=== PATIENT | female | born 1960 | race Caucasian/White ===

== ENCOUNTER 2021-06-07 13:54 | Outpatient (CLI) | payer OTHER, SELFPAY ==
--- NOTE | ~2021-06-07 | XR_ITS ---
EXAMINATION: XR abdomen/kub 1V INDICATION: Left flank pain TECHNIQUE: Supine views of the abdomen were obtained on 2 radiographs. COMPARISON: None FINDINGS: No urolithiasis is identified. The bowel gas pattern is normal. The visualized osseous stru ctures are unremarkable. IMPRESSION: 1. No radiographic correlate for the patient's symptoms. Reviewed, dictated and finalized at location A.
--- NOTE | ~2021-06-07 | CT_ITS ---
EXAMINATION: CT abdomen pelvis wo con DATE: 06/07/2021 14:20 INDICATION: Left flank pain TECHNIQUE: Computed tomography (CT) of the abdomen and pelvis was performed without intravenous contr ast. The dose-length product (DLP) was 416.76 mGy-cm. Automated exposure control and iterative recons truction technique were employed. COMPARISON: None FINDINGS: There is a 5 mm nodule of the left lower lobe. The heart size is normal. Cysts of the liver measure up to 3.5 cm in the left hepatic lobe. The spleen, pancreas, gall bladder, and adrenal gland s are normal. There is a 2 mm nonobstructing stone of the right kidney. The left kidney is unremarkab le. No stones are present in the ureters or bladder. There is no hydronephrosis or hydroureter. There is calcified atherosclerosis of the aorta. No pathologically enlarged abdominal or pelvic lymph node s are identified. There is no free intraperitoneal gas or evidence of bowel obstruction. An intramusc ular lipoma is noted in the right lateral abdominal wall. The appendix is normal. There is mild lumba r spondylosis. A small fat-containing umbilical hernia is noted. IMPRESSION: 1. No CT correlate for the patient's symptoms. Reviewed, dictated and finalized at location A.
== END 2021-06-07 13:55 | disposition home or self-care (01) ==
LOC: ANHIMG 14:00
PROVIDERS: PCP Internal Medicine; Visit Provider Nurse Practitioner Adult Health
DX: R10.9 Unspecified abdominal pain (principal)
CPT/HCPCS: 74018; 74176

== ENCOUNTER → 2023-04-09 13:28 | Outpatient (CLI) | payer OTHER, SELFPAY ==
--- NOTE | ~2023-04-09 | CT_ITS ---
EXAMINATION: CT abdomen pelvis wo/w con DATE: 04/09/2023 14:20 INDICATION: Gross hematuria TECHNIQUE: Computed tomography (CT) of the abdomen and pelvis was performed without and subsequently with 130 CC Omnipaque 350 intravenous contrast. Automated exposure control and iterative reconstructi on technique were employed. Exam dose: 1228.86 mGy-cm total exam DLP. COMPARISON: 06/07/2021 CT abdomen pelvis FINDINGS: 5 mm left lower lobe pulmonary nodule and smaller middle lobe nodule are unchanged since , consistent with benign process. The lung bases are clear of infiltrate or consolidation. Normal heart size. No pericardial or pleural effusion. Stable approximately 3.5 cm left hepatic cyst and 2.5 cm lower right hepatic cyst. The liver, gallbla dder, bile ducts, pancreas, pancreatic duct, spleen, and adrenal glands are otherwise unremarkable an d unchanged. No urinary tract calculus or hydroureteronephrosis. The uterus and adnexal areas are unremarkable. There is atherosclerotic calcification but normal caliber of the abdominal aorta. No intraperitoneal or retroperitoneal or pelvic mass lesion or adenopathy or ascites is noted. Normal appendix. No bowel obstruction, bowel wall thickening, pneumatosis or intraperitoneal free air . Approximately 7.5 mm and 9.5 mm left renal cysts. No other renal space-occupying mass lesion is detec natalie. No intraluminal filling defect of the renal collecting structures, renal pelves or ureters or ur inary bladder is noted. No bladder wall thickening. Very small fat-containing umbilical hernia. Right lateral wall intramuscular lipoma is again noted. Included skeletal structures are unremarkable. IMPRESSION: No cause for gross hematuria is identified Left renal cysts Hepatic cysts Reviewed, dictated and finalized at Location A. Reviewed, dictated and finalized at location B.
[2023-04-09 13:59] LABS: Estimated Glomerular Filt Rate > 60
== END ==
PROVIDERS: PCP Internal Medicine; Visit Provider Urology
DX: R31.0 Gross hematuria (principal); N28.1 Cyst of kidney, acquired; K76.89 Other specified diseases of liver
CPT/HCPCS: 74178; Q9967

== ENCOUNTER 2024-05-09 16:43 | Outpatient (CLI) | payer OTHER, SELFPAY ==
--- NOTE | ~2024-05-09 | CT_ITS ---
EXAMINATION: CT sinus wo con DATE: 05/09/2024 17:09 INDICATION: Chronic sinusitis TECHNIQUE: Computed tomography (CT) of the paranasal sinuses was performed without contrast. Iterativ e reconstruction technique was employed. Exam dose: 286.08 mGy-cm total exam DLP. COMPARISON: None FINDINGS: There is leftward bowing of the nasal septum. There is symmetric moderately prominent soft tissue swelling of the nasal turbinates. The ostiomeatal units are patent. The right frontal sinus is not developed. The left frontal sinus and the anterior ethmoid air cells, maxillary sinuses and right sphenoid sinus are normally developed and aerated. There is very prominent nearly complete opacification of the left sphenoid sinus, some central calcif ication. Some chronic thickening of the wall of the left sphenoid sinus but no expansion of the sinus . There is limited development and partial opacification of the right ethmoid air cells. The left ethmo id air cells are normally aerated. Middle and inner ear apparatus appear unremarkable. IMPRESSION: Leftward bowing of nasal septum Moderate soft tissue swelling of the nasal turbinates Patent ostiomeatal units Near complete opacification of left sphenoid sinus with some central calcification and thickening of the wall, indicating chronicity Limited development and partial opacification of right mastoid air cells Reviewed, dictated and finalized at Location A. Reviewed, dictated and finalized at location J. IMPRESSION: Leftward bowing of nasal septum Moderate soft tissue swelling of the nasal turbinates Patent ostiomeatal units Near complete opacification of left sphenoid sinus with some central calcificat ion and thickening of the wall, indicating chronicity Limited development and partial opacification of right mastoid air cells
== END 2024-05-09 16:44 | disposition home or self-care (01) ==
PROVIDERS: PCP Internal Medicine; Visit Provider Otolaryngology
DX: J32.9 Chronic sinusitis, unspecified (principal)
CPT/HCPCS: 70486

== ENCOUNTER 2024-08-06 11:30 | Outpatient (CLI) | payer OTHER, SELFPAY ==
--- NOTE | 2024-08-06 11:42 | ECG_ITS ---
Test Date: 2024-08-06 11:48:36 Measurements Intervals Ayer Rate: 89 P: 54 RI: 123 QRS: -1 QRSD: 81 T: 32 QT: 333 QTc: 407 Interpretive Statements SINUS RHYTHM CONSIDER INFERIOR INFARCT, AGE INDETERMINATE BASELINE ARTIFACT- I, II, III, AVR, AVL, AVF, V3-V6 ABNORMAL ECG No previous ECG available for comparison Electronically Signed On 08-06-2024 11:58:30 RAW SAMPLER by Nathanael Franco D.O.
== END 2024-08-06 11:31 | disposition home or self-care (01) ==
LOC: ANHSURGERY 11:35
PROVIDERS: PCP Internal Medicine; Visit Provider Otolaryngology
DX: Z01.818 Encounter for other preprocedural examination (principal); I10 Essential (primary) hypertension; R94.31 Abnormal electrocardiogram [ECG] [EKG]
CPT/HCPCS: 93005

== ENCOUNTER 2024-08-11 00:01 | Day surgery (SDC) | payer OTHER, SELFPAY ==
[2024-08-04 15:02] VITALS: BMI 25.1
--- NOTE | 2024-08-04 15:13 | SUR.PREOP ---
Report to the Outpatient Waiting Room, entrance under the green pavilion located off [facility], at time 0600 on date 08/11/24. Planned Procedure Time: 0800.? Time changes happen often and if your time is changed the preop area will call you the afternoon before. - You and your visitor will be asked to self-screen and do not enter if you have any COVID symptoms. Please call surgeon if you need to reschedule. - A mask is optional within the hospital at this time. Patients may have clear liquids (water, carbonated beverages, clear teas, apple juice) until 3 hours prior to surgery with a maximum of 20 ounces. - No food from midnight until time of surgery and no smoking Take only the following medications with a SIP of water on the morning of surgery: Lorazepam as needed, nasal spray, inhaler DO NOT STOP ANY OF YOUR OTHER PRESCRIPTION MEDICATIONS PRIOR TO SURGERY EXCEPT THE FOLLOWING Medications to discontinue per physician: vitamins and supplements- 3 days Date to take last dose: 08/08/24 Please no make-up, nail uzbek, hairspray, perfume, deodorant, or body powder the day of surgery.? No jewelry (including any body piercings) or valuables the day of surgery, leave them at home.? Please take a shower or bath the night before, or the morning of, surgery with an antibacterial soap.? Wear comfortable, loose fitting clothing.? Children are encouraged to wear pajamas. - Jewelry must be removed prior to entering the operating room.? Rings and piercings that are not removed may be cut off. - The hospital will not accept responsibility for valuables.? - Please leave all valuables, including medications, at home the day of surgery. If you are going home after surgery, a licensed food service driver must drive you home.? - NO public transportation without another adult if you receive anesthesia. - We recommend that an adult stay with you for 24 hours following discharge. - We also recommend that you do not drive, make important decision, drink alcoholic beverages, or take any drugs that were not prescribed by your health care provider for at least 24 hours after your discharge time. Follow any additional instructions given to you from your surgeon. Telephone instructions given to patient and asked if any additional questions and then verbalized understanding. Patient advised to call surgeon office or pre surgery nurse liaison [phone] if any additional questions.
[2024-08-11] VITALS (9 sets, daily range): BP systolic 141–174; BP diastolic 63–75; PULSE 89–105; RESP 15–20; TEMP 36.1–36.2; O2SAT 100
--- NOTE | 2024-08-11 06:58 | WPDHPUPDATE1 ---
History and Physical Update Update Date/Time: 08/11/24 06:58 History and Physical has been reviewed, including an updated exam of the patient. There are NO changes in the patient's condition. Risks, benefits, and alternatives have been discussed and questions answered. Patient agrees to proceed with procedure.
[2024-08-11] MEDS: LACTATED RINGERS 1,000 ML 30 ML IV CONT (07:20)
[2024-08-11] MEDS: OXYMETAZOLINE HCL 0.05% NAS 15 ML BTL (*BKC) 1 SPRAY NASAL (07:23)
[2024-08-11] MEDS: ACETAMINOPHEN 500 MG TABLET 1000 MG PO (07:23)
--- NOTE | 2024-08-11 07:47 | WPDANESEPPF ---
Anes - Initial Pre Proc Eval Procedure: Operation Date: 08/11/24 08:00 Proposed Procedures p Fusion Guided Septoplasty, Bilateral Turbinate Reduction, Left Sphenoidotomy - Mil Cardoso MD Date/Time: 08/11/24 07:47 Surgeon: Mil Cardoso MD Pre Op Diagnosis: deviated septum,turbinate hypertrophy Patient Data Age: 64 Gender: F Height: 1.7 m Weight: 70 kg Last Vital Signs Temp 97.0 F L 08/11/24 07:14 Pulse 105 H 08/11/24 07:14 Resp 20 08/11/24 07:14 BP 170/63 H 08/11/24 07:14 Pulse Ox 100 08/11/24 07:14 O2 Del Method Room Air 08/11/24 07:14 Allergies Allergy/AdvReac Type Severity Reaction Status Date / Time amoxicillin Allergy Intermediate Rash Verified 08/04/24 14:55 levofloxacin Allergy Intermediate Rash Verified 08/04/24 14:55 Penicillins AdvReac Intermediate Nausea and Verified 08/04/24 14:55 Vomiting Home Medications Medication Instructions Recorded Confirmed Type albuterol sulfate 90 mcg/actuation 2 inh inhalation Q6H PRN shortness 05/23/23 08/04/24 History breath activated powder inhaler of breath atorvastatin 20 mg tablet 20 mg PO DAILY 05/23/23 08/04/24 History cholecalciferol (vitamin D3) 50 50 mcg PO DAILY 05/23/23 08/04/24 History mcg (2,000 unit) capsule estradiol-norethindrone acet 1 1 tablet PO DAILY 05/23/23 08/04/24 History mg-0.5 mg tablet lorazepam 0.5 mg tablet 0.5 mg PO BID PRN Anxiety 05/23/23 08/04/24 History lisinopril 20 mg tablet 40 mg PO DAILY 03/21/24 08/04/24 History ipratropium bromide 21 mcg (0.03 2 spray intranasal .qd-tid #30 mL 04/23/24 08/04/24 Rx %) nasal spray Adult Probiotic See Rx Instructions .Route .COMPLEX 08/04/24 08/04/24 History Patient hx anesthesia problems: none Family hx anesthesia problems: none Results Review: All pre-operative results and documents have been reviewed as part of the pre-operative evaluation. [facility] Past Medical History Medical History Cancer Family History Family History Mother Hypertension Sibling Hypertension Anxiety Sibling Hypertension Anxiety Other Anxiety Social History Social History Smoking status: Never smoker Alcohol intake: never Substance use: never Lack of Transportation: No Lack of Food: Never True Current Housing: I Have Housing Concerned About Future Housing: No Difficulty Paying Gas/Electric Bills: No Difficulty Paying for Meds: No Currently Unemployed: No Education: High School Diploma/GED Difficulty w/ Childcare or Family Care: No Living arrangements: with family Spiritual care concerns: No Anes - Eval Final PreProcedure Day of Procedure 08/11/24 07:47 Patient weight: normal Heart: regular rate and rhythm Lungs: clear to auscultation Airway: Mallampati scale class II Neurological: alert and oriented ASA classification: II Emergent: no Anesthetic plan: proceed Anesthesia type and monitoring: general ETT and standard monitoring Results Review: All pre-operative results and documents have been reviewed as part of the pre-operative evaluation. HTN, hyperlipidemia. EKG w NSR. Informed Consent: The patient's anesthetic plan and its attendant risks and benefits were discussed with the patient/family/POA. Questions were solicited and answers provided to the satisfaction of the patient/family/POA.
--- NOTE | 2024-08-11 07:51 | W.PM.PROC2 ---
Procedure Note - Detailed Date of Procedure 08/11/24 Pre-op Diagnosis deviated septum,turbinate hypertrophy Surgeon Mil Cardoso MD
[2024-08-11] MEDS: ceFAZolin 2 GM/D5W 50 ML 2 GM/50 ML BAG IVPB (08:13)
[2024-08-11] MEDS: LIDO 1%/EPINEPHRINE 1:100,000 20 ML VIAL 10 ML INFILTRATE (08:31)
[2024-08-11] MEDS: MUPIROCIN 2% OINT 22 GM TUBE 1 APPLIC EACH NARE (08:40)
--- NOTE | 2024-08-11 08:52 | P.OP_ITS ---
Procedure Note - Detailed Date of Procedure 08/11/24 Pre-op Diagnosis deviated septum,turbinate hypertrophy, chronic sphenoid sinusitis Post-op Diagnosis Same Procedure Performed Left sphenoidotomy, image guided. Endoscopic septoplasty and turbinoplasty Surgeon Mil Cardoso MD Anesthesia General Findings Left chronic sphenoid sinusitis, likely fungal but mostly resolved by time of surgery Description of Procedure On the date of procedure the patient was met in the preoperative area and risk and benefits of the procedure reviewed with the patient as documented in the H&P and they elected to proceed with surgery. Patient was brought back to the operating room by the anesthesia team and underwent general endotracheal anesthesia. Once an adequate plane of anesthesia was obtained a timeout was performed to assure the patient identification the patient here to be performed were correct. They were.The patient was then prepped and draped in the normal fashion for endoscopic sinus surgery. The diffusion image guidance system was calibrated and used for the entire case. Afrin-soaked pledgets were placed in the nasal cavities bilaterally. The entire case was performed under endoscopic visualization. Nasal endoscopy was performed at the beginning of the case. Attention was directed to the left side. 1% lidocaine with 1:100,000 epinephrine was then injected into the root of the middle turbinate and lateral nasal wall. The left side was narrowed due to septal deviation.? Thus, septoplasty was required.? A left modified kenna incision was made in the left mid septum and a mucoperichondrial flap was elevated in the usual fashion. The flap was elevated under endoscopic visualization and the remainder of the case was performed with endoscopic assistance. Using a D-knife, an incision was made through the cartilaginous septum with care to preserve the appropriate caudal and dorsal ?L- strut? of cartilage. The cartilage was then disarticulated from the bony- cartilaginous junction and the deviated cartilage was removed. Further deviated bone and cartilage was removed from the maxillary crest and posterior bony septum with care to avoid injury to the mucoperichondrial flap. This led to significant improvement in the nasal airway. The flaps were laid back down. Attention was then directed to the left sphenoid. The middle turbinate was lateralized, the superior turbinate was lateralized and the natural ostia was visualized. This was widened using joseph, then sphenoid punch. Further widened with 2mm kerasin. The sinus was then visualized and some mucoid material was suctioned out. Irrigation was not required. Once the sinus was completely clear, nasopore was placed in the meatus and between the septum and superior turbinate. Lastly, the bilateral inferior turbinates were reduced submucosally using 2mm microdebrider and then outfractured with a sayer elevator. This significantly opened the airway. At this point, the procedure was concluded. Care the patient was transferred back to the anesthesia team and the patient was awoke in the operating room and transferred back to the PACU in stable condition. Mil Cardoso M.D. Estimated Blood Loss 10 Drains No Packing Yes (nasopore) Pathology None sent Complications No immediate complications Condition Stable Disposition PACU
[2024-08-11] MEDS: fentaNYL CITRATE INJ (*CRX) 100 MCG/2 ML VIAL 25 MCG IV PUSH ×2 (10:04→10:35)
[2024-08-11] MEDS: oxyCODONE HCL (*CRX) 5 MG TAB IR PO (10:43)
[2024-08-11] MEDS: ONDANSETRON INJ 4 MG/2 ML VIAL IV PUSH (10:43)
== END 2024-08-11 11:28 | disposition home or self-care (01) ==
PROVIDERS: PCP Internal Medicine; Visit Provider Otolaryngology
PROC: (CPT 31287; principal; 2024-08-11 08:00)
DX: J34.2 Deviated nasal septum (principal); J34.3 Hypertrophy of nasal turbinates; J32.3 Chronic sphenoidal sinusitis; Z79.51 Long term (current) use of inhaled steroids
CPT/HCPCS: 31287; 61782; 30520; 30140; A9270; J0690; J1100; J2003; J2004; J2250; J2270; J2405; J2704; J3010; J7050; J7120

== ENCOUNTER 2024-10-31 00:03 | Day surgery (SDC) | payer OTHER, SELFPAY ==
[2024-10-16 13:55] VITALS: BMI 24.7
--- OUTSIDE RECORDS SUMMARY | 2024-10-31 00:08 | XMS_ITS | Data Portability ---
Author Organization [facility], Main Office Address [address] [place] [address] Assessment Encounter Date Assessment Date Assessment LastModified by Organization Details LastModified Time 03/19/2024 03/19/2024 Assessment: Mild OSAHS, AHI = 14 PLMD Hypoventilation Plan: The following were reviewed and explained to the patient: primary care/referral note [facility] home sleep study 03/12/24 AHI = 14, supine AHI = 15 General information on sleep disordered breathing, evaluation of sleep disordered breathing, treatment with PAP therapy, and living with PAP therapy were covered. PSG is medically necessary to determine the management of sleep apnea. We discussed with the patient the impact of weight on: Sleep disordered breathing Hypertension Hyperlipidemia Osteopenia Thoracic DDD We discussed with the patient the benefit of PAP therapy on: Sleep disordered breathing Anxiety Rhinitis PSVT Hypertension Educated the patient on sleep hygiene measures. Relaxing rituals to rest easy, understanding foods with positive and negative impact on sleep, creating a peaceful sleep environment, timing of exercise, using herbal sleep aids, and practicing sleep-friendly meditation were covered. To determine how much sleep is needed, the patient will assess where she falls on the spectrum, examine what lifestyle factors such as work schedules and stress are affecting the quality and quantity of sleep. In general, adults need 7-9 hours of sleep. Educated the patient regarding foods that promote sleep. These include but are not limited to cherries, bananas, toast, oatmeal, and warm milk. Educated the patient regarding foods and drinks to avoid before bedtime. These include but are not limited to aged cheese, chocolate, spicy foods, tomato-based sauces, soy, ginseng tea and processed meat. Advocated influenza vaccination annually and pneumonia vaccination in 2026. Advocated weight loss through diet and exercise. Patient's ideal body weight according to height and gender is up to 140 lbs. Encouraged patient to adjust caloric intake to maintain/achieve ideal body weight, emphasizing on fruits, vegetables, whole grains, and fat-free or low-fat products. These include lean meats, poultry, fish, beans, eggs, and nuts and foods that are low in saturated fats, trans-fats, cholesterol, salt (sodium), and glycemic index. Stressed the importance of regular exercise up to the patient's capacity limits. In this case, we recommend 20 min daily walking, 2 days a week of resistance training. Patient to monitor BP daily and bring records to PCP for further management. Follow-up: 1 week after titration sleep study Not available 03/19/2024 10:59:12 06/09/2024 06/09/2024 Assessment: Mild OSAHS, AHI = 14, uncontrolled with autoCPAP Plan: The following were reviewed and explained to the patient: [facility] home sleep study 03/12/24 AHI = 14, supine AHI = 15 PAP compliance downloaded and interpreted x 20 minutes. Data reviewed and explained to the patient. Average apnea/hypopnea index (AHI) is 10.4 Patient used PAP > 4 hours 100% of the time. PAP is set at 6-16 cmH2O. PAP will be reset at 8-18 cmH2O until titration sleep study is done. Keep ramp start at 4 cmH2O. Keep ramp duration for 10 minutes. Change humidifier from automatic mode to 4. Keep tube temperature on automatic mode. Oxygen supplementation: none Patient is benefiting from PAP therapy. Encouraged patient to maintain PAP use more than 70% of the time. Statement of PAP use and benefits will be sent to the home care store. Educated the patient on problems and solutions associated with positive airway pressure (PAP) use. Difficulty tolerating pressure, mask leaks, intolerance of interface, nasal congestion, claustrophobic response, dry mouth, and unintentional mask removal during sleep were covered. Dry mouth is a normal occurrence for people who just start out on PAP therapy because they are not used to air blowing in to the throat to hold open. Dry mouth is exacerbated for people who wear nasal PAP mask and whose jaw drops open during sleep. Not only does this create a much less efficient therapy because of leakage, it also causes dry mouth. There are a couple solutions to help prevent this type of problem. A simple solution would be to wear a chinstrap which essentially holds the jaw in place. A second solution would be a switch to a full face mask which covers both the nose and mouth. Although this is another easy solution, using a full face mask for some could seem claustrophobic or confining. There is no silver bullet solution as no single mask is right for everybody. Sometimes it takes a bit of experimentation to find a PAP mask which best meets the patient's needs as well as fits comfortably. Another tactic is to use a humidifier on your PAP machine. Most new PAP machines have integrated humidifiers. Humidification is harris when dealing with symptoms of dry mouth because the humidifier can supply both warm and room temperate air. Even a small amount of humidity in the airflow will help nasal passages to stay hydrated. If a person is using both a full face mask and a PAP machine with a heated humidifier and is still experiencing dry mouth, an ill-fitted PAP mask might be causing the problem. Leakage can be caused by a mask that is to large or small, the wrong style mask, the cushion is degraded or simply because the mask's straps aren't adjusted correctly. If leakage occurs, dry air from the room can leak in while humidification escapes. The result is reduced humidification within the circuit and resulting in dry throat and mouth. Finally, beyond factors involving the PAP machine and mask, dry mouth can also be caused or worsened by dehydration. The general recommendation to during eight 8 oz. glasses of water a day might be too little for many people. When people drink large amounts of coffee or other caffeine beverages, or sweat a lot during the day, making sure to rehydrate is an important part of PAP therapy. Provided the patient with a list of local home care stores where positive airway pressure (PAP) units, accoutrement, and services are available. Home care store selection is based on patient's insurance carrier. Patient will setup an appointment with [facility] for supplies and pressure adjustments. A major predictor of success with use of PAP is follow-up with both the respiratory supplier and the treating physician. The download results can show the treating physician information about adherence to treatment, residual AHI while on treatment and presence of large mask leakage. This information is especially helpful if the patient has residual sleepiness despite treatment. General information on sleep disordered breathing, evaluation of sleep disordered breathing, treatment with PAP therapy, and living with PAP therapy were covered. We discussed with the patient the impact of weight on: Sleep disordered breathing Hypertension Hyperlipidemia Osteopenia Thoracic DDD We discussed with the patient the benefit of PAP therapy on: Sleep disordered breathing Anxiety Rhinitis PSVT Hypertension Educated the patient on sleep hygiene measures. Relaxing rituals to rest easy, understanding foods with positive and negative impact on sleep, creating a peaceful sleep environment, timing of exercise, using herbal sleep aids, and practicing sleep-friendly meditation were covered. To determine how much sleep is needed, the patient will assess where she falls on the spectrum, examine what lifestyle factors such as work schedules and stress are affecting the quality and quantity of sleep. In general, adults need 7-9 hours of sleep. Educated the patient regarding foods that promote sleep. These include but are not limited to cherries, bananas, toast, oatmeal, and warm milk. Educated the patient regarding foods and drinks to avoid before bedtime. These include but are not limited to aged cheese, chocolate, spicy foods, tomato-based sauces, soy, ginseng tea and processed meat. Advocated influenza vaccination annually and pneumonia vaccination in 2026. Advocated weight loss through diet and exercise. Patient's ideal body weight according to height and gender is up to 140 lbs. Encouraged patient to adjust caloric intake to maintain/achieve ideal body weight, emphasizing on fruits, vegetables, whole grains, and fat-free or low-fat products. These include lean meats, poultry, fish, beans, eggs, and nuts and foods that are low in saturated fats, trans-fats, cholesterol, salt (sodium), and glycemic index. Stressed the importance of regular exercise up to the patient's capacity limits. In this case, we recommend 20 min daily walking, 2 days a week of resistance training. Patient to monitor BP daily and bring records to PCP for further management. Follow-up: 1 week after titration sleep study Not available 06/09/2024 11:45:21 07/21/2024 07/21/2024 Assessment: Hypertension Mild OSAHS, AHI = 14, better controlled with adjusted autoCPAP Plan: The following were reviewed and explained to the patient: [facility] home sleep study 03/12/24 AHI = 14, supine AHI = 15 PAP compliance downloaded and interpreted x 20 minutes. Data reviewed and explained to the patient. Average apnea/hypopnea index (AHI) is 6.1. Patient used PAP > 4 hours 95% of the time. PAP is set at 8-18 cmH2O. PAP will be reset at 11-18 cmH2O. Keep ramp start at 4 cmH2O. Keep ramp duration for 10 minutes. Keep EPR +1 television inspector. Keep humidifier on automatic mode. Keep tube temperature at 84 F. Oxygen supplementation: none Patient is benefiting from PAP therapy. Encouraged patient to maintain PAP use more than 70% of the time. Statement of PAP use and benefits will be sent to the home care store. Educated the patient on problems and solutions associated with positive airway pressure (PAP) use. Difficulty tolerating pressure, mask leaks, intolerance of interface, nasal congestion, claustrophobic response, dry mouth, and unintentional mask removal during sleep were covered. Dry mouth is a normal occurrence for people who just start out on PAP therapy because they are not used to air blowing in to the throat to hold open. Dry mouth is exacerbated for people who wear nasal PAP mask and whose jaw drops open during sleep. Not only does this create a much less efficient therapy because of leakage, it also causes dry mouth. There are a couple solutions to help prevent this type of problem. A simple solution would be to wear a chinstrap which essentially holds the jaw in place. A second solution would be a switch to a full face mask which covers both the nose and mouth. Although this is another easy solution, using a full face mask for some could seem claustrophobic or confining. There is no silver bullet solution as no single mask is right for everybody. Sometimes it takes a bit of experimentation to find a PAP mask which best meets the patient's needs as well as fits comfortably. Another tactic is to use a humidifier on your PAP machine. Most new PAP machines have integrated humidifiers. Humidification is harris when dealing with symptoms of dry mouth because the humidifier can supply both warm and room temperate air. Even a small amount of humidity in the airflow will help nasal passages to stay hydrated. If a person is using both a full face mask and a PAP machine with a heated humidifier and is still experiencing dry mouth, an ill-fitted PAP mask might be causing the problem. Leakage can be caused by a mask that is to large or small, the wrong style mask, the cushion is degraded or simply because the mask's straps aren't adjusted correctly. If leakage occurs, dry air from the room can leak in while humidification escapes. The result is reduced humidification within the circuit and resulting in dry throat and mouth. Finally, beyond factors involving the PAP machine and mask, dry mouth can also be caused or worsened by dehydration. The general recommendation to during eight 8 oz. glasses of water a day might be too little for many people. When people drink large amounts of coffee or other caffeine beverages, or sweat a lot during the day, making sure to rehydrate is an important part of PAP therapy. Provided the patient with a list of local home care stores where positive airway pressure (PAP) units, accoutrement, and services are available. Home care store selection is based on patient's insurance carrier. Patient will setup an appointment with [facility] for supplies and pressure adjustments. A major predictor of success with use of PAP is follow-up with both the respiratory supplier and the treating physician. The download results can show the treating physician information about adherence to treatment, residual AHI while on treatment and presence of large mask leakage. This information is especially helpful if the patient has residual sleepiness despite treatment. General information on sleep disordered breathing, evaluation of sleep disordered breathing, treatment with PAP therapy, and living with PAP therapy were covered. We discussed with the patient the impact of weight on: Sleep disordered breathing Hypertension Hyperlipidemia Osteopenia Thoracic DDD We discussed with the patient the benefit of PAP therapy on: Sleep disordered breathing Anxiety Rhinitis PSVT Hypertension Educated the patient on sleep hygiene measures. Relaxing rituals to rest easy, understanding foods with positive and negative impact on sleep, creating a peaceful sleep environment, timing of exercise, using herbal sleep aids, and practicing sleep-friendly meditation were covered. To determine how much sleep is needed, the patient will assess where she falls on the spectrum, examine what lifestyle factors such as work schedules and stress are affecting the quality and quantity of sleep. In general, adults need 7-9 hours of sleep. Educated the patient regarding foods that promote sleep. These include but are not limited to cherries, bananas, toast, oatmeal, and warm milk. Educated the patient regarding foods and drinks to avoid before bedtime. These include but are not limited to aged cheese, chocolate, spicy foods, tomato-based sauces, soy, ginseng tea and processed meat. Advocated influenza vaccination annually and pneumonia vaccination in 2027. Advocated weight loss through diet and exercise. Patient's ideal body weight according to height and gender is up to 140 lbs. Encouraged patient to adjust caloric intake to maintain/achieve ideal body weight, emphasizing on fruits, vegetables, whole grains, and fat-free or low-fat products. These include lean meats, poultry, fish, beans, eggs, and nuts and foods that are low in saturated fats, trans-fats, cholesterol, salt (sodium), and glycemic index. Stressed the importance of regular exercise up to the patient's capacity limits. In this case, we recommend 20 min daily walking, 2 days a week of resistance training. Patient to monitor BP daily and bring records to PCP for further management. Follow-up: 3 months, September 2024 [email or web address] Not available 07/21/2024 14:53:31 10/20/2024 10/20/2024 Assessment: Mild OSAHS, AHI = 14, better controlled with adjusted autoCPAP Plan: The following were reviewed and explained to the patient: [facility] home sleep study 03/12/24 AHI = 14, supine AHI = 15 PAP compliance downloaded and interpreted x 20 minutes. Data reviewed and explained to the patient. Average apnea/hypopnea index (AHI) is 5.3. Patient used PAP > 4 hours 81% of the time. PAP is set at 11-18 cmH2O. PAP will be reset at 12-18 cmH2O. Keep ramp start at 4 cmH2O. Keep ramp duration for 10 minutes. Change EPR from +1 to +3 television inspector. Keep humidifier on automatic mode. Keep tube temperature at 78 F. Oxygen supplementation: none Patient is benefiting from PAP therapy. Encouraged patient to maintain PAP use more than 70% of the time. Statement of PAP use and benefits will be sent to the home care store. Educated the patient on problems and solutions associated with positive airway pressure (PAP) use. Difficulty tolerating pressure, mask leaks, intolerance of interface, nasal congestion, claustrophobic response, dry mouth, and unintentional mask removal during sleep were covered. Dry mouth is a normal occurrence for people who just start out on PAP therapy because they are not used to air blowing in to the throat to hold open. Dry mouth is exacerbated for people who wear nasal PAP mask and whose jaw drops open during sleep. Not only does this create a much less efficient therapy because of leakage, it also causes dry mouth. There are a couple solutions to help prevent this type of problem. A simple solution would be to wear a chinstrap which essentially holds the jaw in place. A second solution would be a switch to a full face mask which covers both the nose and mouth. Although this is another easy solution, using a full face mask for some could seem claustrophobic or confining. There is no silver bullet solution as no single mask is right for everybody. Sometimes it takes a bit of experimentation to find a PAP mask which best meets the patient's needs as well as fits comfortably. Another tactic is to use a humidifier on your PAP machine. Most new PAP machines have integrated humidifiers. Humidification is harris when dealing with symptoms of dry mouth because the humidifier can supply both warm and room temperate air. Even a small amount of humidity in the airflow will help nasal passages to stay hydrated. If a person is using both a full face mask and a PAP machine with a heated humidifier and is still experiencing dry mouth, an ill-fitted PAP mask might be causing the problem. Leakage can be caused by a mask that is to large or small, the wrong style mask, the cushion is degraded or simply because the mask's straps aren't adjusted correctly. If leakage occurs, dry air from the room can leak in while humidification escapes. The result is reduced humidification within the circuit and resulting in dry throat and mouth. Finally, beyond factors involving the PAP machine and mask, dry mouth can also be caused or worsened by dehydration. The general recommendation to during eight 8 oz. glasses of water a day might be too little for many people. When people drink large amounts of coffee or other caffeine beverages, or sweat a lot during the day, making sure to rehydrate is an important part of PAP therapy. Provided the patient with a list of local home care stores where positive airway pressure (PAP) units, accoutrement, and services are available. Home care store selection is based on patient's insurance carrier. Patient will setup an appointment with [facility] for supplies and pressure adjustments. A major predictor of success with use of PAP is follow-up with both the respiratory supplier and the treating physician. The download results can show the treating physician information about adherence to treatment, residual AHI while on treatment and presence of large mask leakage. This information is especially helpful if the patient has residual sleepiness despite treatment. General information on sleep disordered breathing, evaluation of sleep disordered breathing, treatment with PAP therapy, and living with PAP therapy were covered. We discussed with the patient the impact of weight on: Sleep disordered breathing Hypertension Hyperlipidemia Osteopenia Thoracic DDD We discussed with the patient the benefit of PAP therapy on: Sleep disordered breathing Anxiety Rhinitis PSVT Hypertension Educated the patient on sleep hygiene measures. Relaxing rituals to rest easy, understanding foods with positive and negative impact on sleep, creating a peaceful sleep environment, timing of exercise, using herbal sleep aids, and practicing sleep-friendly meditation were covered. To determine how much sleep is needed, the patient will assess where she falls on the spectrum, examine what lifestyle factors such as work schedules and stress are affecting the quality and quantity of sleep. In general, adults need 7-9 hours of sleep. Educated the patient regarding foods that promote sleep. These include but are not limited to cherries, bananas, toast, oatmeal, and warm milk. Educated the patient regarding foods and drinks to avoid before bedtime. These include but are not limited to aged cheese, chocolate, spicy foods, tomato-based sauces, soy, ginseng tea and processed meat. Advocated influenza vaccination annually and pneumonia vaccination in 2026. Advocated weight loss through diet and exercise. Patient's ideal body weight according to height and gender is up to 140 lbs. Encouraged patient to adjust caloric intake to maintain/achieve ideal body weight, emphasizing on fruits, vegetables, whole grains, and fat-free or low-fat products. These include lean meats, poultry, fish, beans, eggs, and nuts and foods that are low in saturated fats, trans-fats, cholesterol, salt (sodium), and glycemic index. Stressed the importance of regular exercise up to the patient's capacity limits. In this case, we recommend 20 min daily walking, 2 days a week of resistance training. Patient to monitor BP daily and bring records to PCP for further management. Follow-up: 3 months, December 2024 [facility] Not available 10/20/2024 14:51:14 Plan of Treatment Reminders Order Date Submit Date Provider Last Modified By Organization Details Last Modified Time Details Appointments Any 30 2024 02:00P Cindy Gillespie MD Not available Not available Not available Lab None recorded. Referral None recorded. Procedures None recorded. Surgeries None recorded. Imaging polysomno gram, titration study - Approved, Case #[id number], Valid through 03/26/2024- [address], [address] [place], [address], 10/14/2024 17:18:32 polysomno gram, titration study - Please call patient to schedule. autoCPA P unsuccess ful in controlli ng AHI to <5 2023 024 [email or web address] [facility], [address] [place], [address], 10/22/2024 17:31:58 Medication Orders None recorded. Patient TargetsNo targets recorded. Patient Instructions Encounter Date Encounter Id Patient Instructions Last Modified By Organization Details Last Modified Time 05/07/2024 [id number] Follow-up hypertension, hyperlipidemia, GERD as well as anxiety disorder all these clinically stable. Still bothered by persistent nasal congestion rhinorrhea is being evaluated by ENT is got a CT scan of the sinuses scheduled for tomorrow. Most recent blood work looked adequate. No need for repeating this. Was also seen by the metal numerical tool programmer in the interim and no evidence any significant allergies. Does need a mammogram bone density scan: Endoscopy. Will continue on current Rx otherwise. Follow-up in six months. Additional Orders - Directives - Recommendations 1. Mammogram 2. DEXA Scan 3. Colonoscopy Portions of the record may have been created with voice recognition software. Occasional wrong-word or s ound-a-like substitutions may have occurred due to the inherent limitations of voice recognition software. Read the chart carefully and recognize, using context, where substitutions have occurred. Not available 05/07/2024 16:53:47 Reason for Referral None Reported. Results Created Date Observation Date Name Description Value Unit Range Abnormal Flag Note LastModifiedBy Organization Detail LastModifiedTime 03/17/2003/12/2024 home sleep study No observ ation record ed. [facility] [address] [place], [address], 03/17/2024 11:11:36 06/25/20 24 03/12/2024 home sleep study No observ ation record ed. [email or web address] [facility] [address], [place], [address], 03/18/2024 16:11:46 05/10/20 24 05/09/2024 CT, sinus es, w/o contr ast No observ ation record ed. [email or web address] [facility] [address] [facility] [address], [place], [address], 05/11/2024 00:27:57 10/08/19 25 MAMMO , scree piero, bilat eral No observ ation record ed. [email or web address] [id number] Not Available 2024 14:21:43 Result Notes None recorded. Problems Name Problem SNOMED Code Status Onset Date Resolution Date Notes Provider Name and Address Organization Details Recorded Time Benign essential hypertensi on 5097744 Active Not Available [facility] 3 06:48:06 Mammograph y finding 038754392 Completed Not Available [facility] 3 06:48:07 Amenorrhea 25467654 Completed Not Available [facility] 3 06:48:07 Senile osteoporos is 92330711 Active 2021 Not Available [facility] 3 06:48:07 Anxiety disorder 650671196 Active 2018 Not Available [facility] 3 06:48:07 Contact dermatitis caused by urushiol from Eastern poison mert 330751064 Active 2021 Not Available [facility] 3 06:48:07 Pure hyperchole sterolemia 094835010 Active Not Available [facility] 3 06:48:08 Thoracic back pain 471446607 Active 2021 Not Available [facility] 3 06:48:08 Vitamin D deficiency 53072038 Active 2021 Not Available [facility] 3 06:48:08 Depressive disorder 85893532 Active Not Available [facility] 3 06:48:08 Cervicovag inal cytology: Low grade squamous intraepith elial lesion 162953713 Completed Not Available [facility] 3 06:48:09 Atypical squamous cells of undetermin ed significan ce on cervical Papanicola ou smear 069398128 Completed Not Available [facility] 3 06:48:09 Carpal tunnel syndrome 52047130 Active Not Available [facility] 3 06:48:10 Paroxysmal supraventr icular tachycardi a 34472909 Active Not Available [facility] 3 06:48:10 Irregular periods 42954309 Completed Not Available [facility] 3 06:48:10 COVID-19 939292199 Active 2022 Not Available [facility] 3 06:48:10 Allergic rhinitis 78673842 Active 2022 Parker Brody MD [address], [address], [address] , [employer] 3 12:39:30 Obstructiv e sleep apnea syndrome 44121182 Active 2023 Parker Brody MD [address], [address], [place], [address] , [employer] 4 16:44:38 Gastroesop hageal reflux disease 621289975 Active 2023 Parker Brody MD [address], [address], [place], [address] , [employer] 4 16:48:42 Notes:Medical History: Anxie ty Bilateral tinnitus COVID infections 06/2020, 09/2022 Rhinitis Mild OSAHS, AHI = 14, 03/12/24 PSVT Hypertension Hyperlipidemia Up to 5 mm pulmonary nodules ASHIA Hepatic cysts Left renal cysts Vit D deficiency Left femoral neck osteopenia Thoracic DDD CTS 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 Procedures Surgical History None recorded. Imaging Results Imaging Date Name Status LastModified by Organ [facility] Details LastModified Time 03/12/2024 home sleep study completed [facility] [address] [place], [address], 03/17/2024 11:11:36 03/12/2024 home sleep study completed [email or web address] [place] [address], [place], [address], 03/18/2024 16:11:46 05/09/2024 CT, sinuses, w/o contrast completed [email or web address] [place] [address] [address] [facility] [address], [place], [address], 05/11/2024 00:27:57 10/08/2024 MAMMO, screening, bilateral completed [email or web address] Information not available 10/08/2024 14:21:43 Procedure Notes None recorded. Medical Equipment None Reported. Allergies Allergen ID Allergen Name Allergen Category Reaction Reaction Severity Criticality Documentation Date Start Date Code Code System Note Provider Name and Address Organization Details Recorded Time 59270 Vibramyci n medicatio n other Not available Not available 11/22/202291026 5 RxNorm GI distu rbanc e Not Available [facility] 3 06:59:51 92731 Substance with sulfonami de structure and antibacte rial mechanism of action (substanc e) medicatio n hives Not available Not available 11/22/2022 53481 8003 SNOMED Not Available [facility] 3 06:59:51 81181 Product containin g penicilli n and antibioti c (product) medicatio n hives moderate Not available 11/22/2022 53653 05 SNOMED Not Available [facility] 3 06:59:51 68734 Levaquin medicatio n rash moderate Not available 11/22/2022 93692 2 RxNorm Not Available [facility] 3 06:59:51 07955 Biaxin medicatio n other Not available Not available 11/22/2022 94222 9 RxNorm abdom inal pain Not Available [facility] 3 06:59:51 Medications Name Sig Start Date Stop Date Status Note LastModified by Organization Details LastModified Time atorvastati n 20 mg tablet TAKE 1 TABLET DAILY active Not Available Not Available No t Available naproxen 375 mg tablet ONE TWICE A DAY active Not Available Not Available No t Available esterified estrogens-m ethyltestos terone 0.625 mg-1.25 mg tablet Take 1 tablet by oral route. 09/04 completed Not Available Not Available Not Available clindamycin HCl 300 mg capsule TAKE 1 CAPSULE BY MOUTH EVERY 6 HOURS 03/19 completed Not Available Not Available Not Available triamcinolo ne acetonide 0.5 % topical cream APPLY A THIN LAYER TO THE AFFECTED AREA(S) BY TOPICAL ROUTE 2 TIMES PER DAY 04/29 completed Not Available Not Available Not Available azithromyci n 250 mg tablet TAKE DIRECTED active Not Available Not Available No t Available fluconazole 150 mg tablet Take 1 tablet as needed by oral route as needed. 03/05 completed Not Available Not Available Not Available benzonatate 200 mg capsule TAKE 1 CAPSULE BY MOUTH THREE TIMES DAILY 09/30 completed Not Available Not Available Not Available hydrocodone 5 mg-acetamin ophen 325 mg tablet TAKE 1 TABLET BY MOUTH EVERY 4 HOURS active Not Available Not Available No t Available metronidazo le 0.75 % (37.5 mg/5 gram) vaginal gel INSERT 1 APPLICATO RFUL VAGINALLY AT BEDTIME FOR 5 NIGHTS 04/29 completed Not Available Not Available Not Available lisinopril 20 mg tablet one and half tablet daily 11/22 completed Not Available Not Available Not Available ondansetron HCl 4 mg tablet TAKE 2 TABLETS BY MOUTH TWICE DAILY NEEDED 09/30 completed Not Available Not Available Not Available medroxyprog esterone 5 mg tablet Take 1 tablet every day by oral route. 09/04 completed Not Available Not Available Not Available fluorouraci l 5 % topical cream APPLY TOPICALLY TO THE CHEST TWICE DAILY FOR 6 WEEKS 04/29 completed Not Available Not Available Not Available prednisone 5 mg tablet 03/19 completed Not Available Not Available Not Available terconazole 0.8 % vaginal cream INSERT 1 APPLICATO RFUL VAGINALLY EVERY NIGHT FOR 3 DAYS 09/30 completed Not Available Not Available Not Available clindamycin HCl 150 mg capsule Take 1 capsule every 6 hours by oral route. active Not Available Not Available No t Available promethazin e 6.25 mg-codeine 10 mg/5 mL syrup Take 5 mL every 6 hours by oral route. 03/05 completed Not Available Not Available Not Available estradiol-n orethindron e acet 1 mg-0.5 mg tablet TAKE 1 TABLET BY MOUTH DAILY active Not Available Not Available No t Available tramadol 50 mg tablet TAKE 1 TABLET BY MOUTH FOUR TIMES DAILY NEEDED active Not Available Not Available No t Available triamcinolo ne acetonide 0.1 % topical cream APPLY TOPICALLY TO THE AFFECTED AREA TWICE DAILY 09/30 completed Not Available Not Available Not Available ondansetron 8 mg disintegrat ing tablet Place 1 tablet twice a day by transling ual route as needed. 09/30 completed Not Available Not Available Not Available prednisone 10 mg tablets in a dose pack 08/30 completed Not Available Not Available Not Available terconazole 80 mg vaginal suppository UNWRAP AND INSERT 1 SUPPOSITO RY VAGINALLY AT BEDTIME FOR 3 NIGHTS 11/18 completed Not Available Not Available Not Available cefadroxil 500 mg capsule 04/29 completed Not Available Not Available Not Available Mobic 15 mg tablet once daily 09/02 completed Not Available Not Available Not Available ofloxacin 0.3 % ear drops 10/26 completed Not Available Not Available Not Available lorazepam 0.5 mg tablet TAKE 1 TABLET BY MOUTH TWICE DAILY NEEDED active Not Available Not Available No t Available Kenalog 10 mg/mL suspension for injection Take 1 mL by injection route. 10/26 completed [facility]: 0003- [phone]- 20 Not Available Not Available Not Available benzonatate 100 mg capsule TAKE 1 CAPSULE BY MOUTH EVERY DAY AT BEDTIME NEEDED FOR COUGH 10/26 completed Not Available Not Available Not Available misoprostol 200 mcg tablet INSERT 1 TABLET VAGINALLY 48 HOURS PRIOR TO PROCEDURE .THEN INSERT 1 TABLET THE NIGHT BEFORE PROCEDURE 03/19 completed Not Available Not Available Not Available Diprolene AF 0.05 % topical cream Apply 1 applicati on twice a day by topical route. active Not Available Not Available No t Available Valtrex 1 gram tablet take 1/2 tablet daily x 30 day; then prn 12/24 completed Not Available Not Available Not Available lisinopril 30 mg tablet TAKE 1 TABLET BY MOUTH EVERY DAY 12/06 completed Not Available Not Available Not Available omeprazole 20 mg capsule,del ayed release TAKE 1 CAPSULE BY MOUTH DAILY AROUND SUPPER TIME active Not Available Not Available No t Available lorazepam 1 mg tablet TAKE 1 TABLET BY MOUTH THREE TIMES DAILY 11/18 completed Not Available Not Available Not Available azelastine 137 mcg (0.1 %) nasal spray ADMINISTE R 1 SPRAY IN EACH NOSTRIL EVERY 12 HOURS active Not Available Not Available No t Available methylpredn isolone 4 mg tablets in a dose pack TAKE BY MOUTH DIRECTED 09/30 completed Not Available Not Available Not Available hydrocodone 10 mg-chlorphe niramine 8 mg/5 mL oral susp extend.rel 12hr active Not Available Not Available Not Available albuterol sulfate HFA 90 mcg/actuati on aerosol inhaler USE 2 INHALATIO NS FOUR TIMES A DAY active Not Available Not Available No t Available hydroxyzine HCl 10 mg tablet Take by oral route four times daily PRN for itching active Not Available Not Available No t Available lisinopril 40 mg tablet TAKE 1 TABLET BY MOUTH EVERY DAY active Not Available Not Available No t Available ipratropium bromide 21 mcg (0.03 %) nasal spray INSTILL TWO SPRAYS IN EACH NOSTRIL EVERY DAY TO THREE TIMES DAILY active Not Available Not Available No t Available Bactrim DS 800 mg-160 mg tablet Take 1 tablet every 12 hours by oral route for 5 days. 03/04 completed Not Available Not Available Not Available Estrace 0.01% (0.1 mg/gram) vaginal cream Insert 1 g by vaginal route. 09/04 completed 09/24 Not Available Not Available Not Available Lexapro 10 mg tablet Take 1 tablet every day by oral route. 12/24 completed Not Available Not Available Not Available Prempro 0.45 mg-1.5 mg tablet Take 1 tablet every day by oral route. 05/01 completed Not Available Not Available Not Available Prempro 0.3 mg-1.5 mg tablet Take 1 tablet every day by oral route. 05/01 completed Not Available Not Available Not Available nitrofurant oin monohydrate /macrocryst als 100 mg capsule TK 1 C PO BID 11/18 completed Not Available Not Available Not Available aspirin (bulk) 2015 active 81mg Not Available Not Available Not Avai lable Lo Loestrin Fe 1 mg-10 mcg (24)/10 mcg (2) tablet active Not Available Not Available Not Available Lo Loestrin Fe 2012 active Not Available Not Available Not Avai lable ropivacaine (PF) 5 mg/mL (0.5 %) injection solution Take 1 mL by injection route. 10/26 completed [facility] [phone] Not Available Not Available Not Available QNASL 80 mcg/actuati on nasal aerosol spray active Not Available Not Available Not Available Black Cohosh Menopause Complex 20-250-50 (d)20-200-1 00 mg(n) tablets Take 1 tablet every day by oral route. active Not Available Not Available No t Available Flowflex COVID-19 Antigen Home Test kit 10/26 completed Not Available Not Available Not Available Paxlovid 300 mg (150 mg x 2)-100 mg tablets in a dose pack Take two of he 150 mg tablets and one of the 100 mg tablets twice daily for five days 10/27 completed Not Available Not Available Not Available Vitals Date Recorded Body height Body mass index (BMI) Body weight Heart rate Oxygen saturation Oxygen saturation in Arterial blood by Pulse oximetry Body temperature Systolic blood pressure Diastolic blood pressure Provider Name and Address Organization Details Last Updated DateTime 4 167.64 cm 25.3 kg/m2 60937 g 80 /min 98 % 98 % 97.8 [degF] 128 mm[Hg] 72 mm[Hg] Amy Garcia CMA [employer] [facility] [employer] 4 10:09:08 Date Recorded Heart rate Respiratory rate Provider N goyo and Address Organization Details Last Updated DateTime 03/19/2024 80 /min 15 /min Esvin Gillespie MD [address] [facility], [facility] [address], [place], [address], [employer] [facility] [employer] 03/19/2024 11:06:33 Date Recorded Body height Body mass index (BMI) Body weight Heart rate Body temperature Oxygen saturation Oxygen saturation in Arterial blood by Pulse oximetry Systolic blood pressure Diastolic blood pressure Provider Name and Address Organization Details Last Updated DateTime 4 167.64 cm 25.7 kg/m2 70782.1 9 g 82 /min 97.9 [degF] 99 % 99 % 144 mm[Hg] 88 mm[Hg] KENN Riggs MS [employer] [facility] [employer] 4 16:40:10 Date Recorded Body height Body mass index (BMI) Body weight Body temperature Heart rate Oxygen saturation Oxygen saturation in Arterial blood by Pulse oximetry Systolic blood pressure Diastolic blood pressure Provider Name and Address Organization Details Last Updated DateTime 4 167.64 cm 25.5 kg/m2 94425.5 9 g 98 [degF] 72 /min 98 % 98 % 126 mm[Hg] 70 mm[Hg] Amy Garcia [facility] [employer] [facility] 4 10:47:26 Date Recorded Heart rate Respiratory rate Provider N goyo and Address Organization Details Last Updated DateTime 06/09/2024 72 /min 14 /min Esvin Gillespie MD [address] [facility], [address], [facility] [employer] [facility] 06/09/2024 11:41:05 Date Recorded Body height Oxygen saturation Oxygen saturation in Arterial blood by Pulse oximetry Body temperature Body mass index (BMI) Body weight Provider Name and Address Organization Details Last Updated DateTime 4 167.64 cm 96 % 96 % 98.5 [degF] 24.2 kg/m2 90596.8 6 g Amy Garcia [facility] [employer] [facility] 4 14:18:37 Date Recorded Heart rate Respiratory rate Heart rate Systolic blood pressure Diastolic blood pressure Provider Name and Address Organization Details Last Updated DateTime 07/21/2024 83 /min 15 /min 83 /min 140 mm[Hg] 72 mm[Hg] Esvin Gillespie MD [address], [place], [address], [facility] [employer] [facility] 4 14:37:46 Date Recorded Body height Heart rate Oxygen saturation Oxygen saturation in Arterial blood by Pulse oximetry Body mass index (BMI) Body weight Body temperature Systolic blood pressure Diastolic blood pressure Provider Name and Address Organization Details Last Updated DateTime 5 167.64 cm 88 /min 98 % 98 % 26.5 kg/m2 74636.1 5 g 97.8 [degF] 128 mm[Hg] 72 mm[Hg] Maude Miller MA [facility] [employer] [facility] 5 14:21:01 Date Recorded Heart rate Respiratory rate Provider N goyo and Address Organization Details Last Updated DateTime 10/20/2024 88 /min 14 /min Esvin Gillespie MD [address], [facility] [address], [place], [address], [facility] [employer] 10/20/2024 14:45:21 Social History Question Answer Notes LastModified by Organizat ion Details LastModified Time Tobacco Smoking Status Never Smoker Shaylee Montes, RMA null, [facility] [employer] 01/24/2023 14:36:26 Do You Have An Advance Directive? No [id number] Information not available 11/22/2022 What Is Your Level Of Alcohol Consumption? None [email or web address] Information not available 01/24/2023 Do You Wear A Helmet When Biking? Yes Information not available 01/24/2023 What Is Your Level Of Caffeine Consumption? None [email or web address] Information not available 03/19/2024 In The 14 Days Before Symptom Onset, Have You Had Close Contact With A Laboratory-confirm ed COVID-19 While That Case Was Ill? No Information n ot available 01/24/2023 In The 14 Days Before Symptom Onset, Have You Had Close Contact With A Person Who Is Under Investigation For COVID-19 While That Person Was Ill? No Information not available 01/24/2023 What Type Of Diet Are You Following? REGULAR [id number] Information not available 11/22/2022 Do You Have An Electrostatic Air Filter? No Information not available 10/20/2024 What Is Your Occupation? Retired [employer] Information not available 01/24/2023 Do You Have A Humidifier? No Information not available 10/20/2024 Do You Have A Medical Power Of Charge Aide? No Information not available 01/24/2023 Do You Have Moisture Problems In Your Home? No Information not available 10/20/2024 What Was The Date Of Your Most Recent Tobacco Screening? 10/20/2024 Information not available 10/20/2024 Do You Have Any Pets? No Information not available 10/20/2024 What Is Your Relationship Status? [id number] Information not available 11/22/2022 Do You Use Your Seat Belt Or Car Seat Routinely? Yes Information not available 01/24/2023 Do You Have Smoke And Carbon Monoxide Detectors In Your Home? Yes Information not available 10/20/2024 Are You Passively Exposed To Smoke? No Information no t available 10/20/2024 Do You Feel Stressed (tense, Restless, Nervous, Or Anxious, Or Unable To Sleep At Night)? [id number] Information not available 01/24/2023 Do You Use Any Illicit Or Recreational Drugs? No Information not available 03/19/2024 Do You Use Sunscreen Routinely? Yes Information not available 10/20/2024 Have You Recently Traveled Abroad? No Information not available 01/24/2023 Do You Have Any Dietary Restrictions? No Information not available 01/24/2023 Sex: Female Functional Status Question Answer Note LastModified by [employer] ion Details LastModified Time What is your exercise level? Occasional [id number] Information not available 11/22/2022 Mental Status None recorded. Family History Relationship Description Onset Age of this Age Resolved Age Notes LastModified by Organization Details LastModified Time Sister Hypertensive disorder [email or web address] Not available 2023 11:07:01 Sister Hyperlipidem ia [email or web address] Not available 2023 11:07:10 Mother Hypertensive disorder [email or web address] Not available 2023 11:07:25 Mother Age related macular degeneration [email or web address] Not available 11:07:31 Mother Osteoporosis Not availab le 03/19/2024 11:07:41 Medical History Condition Response NERVE DISEASE N BLINDNESS N RHEUMATIC FEVER N KIDNEY STONES N BLADDER PROBLEMS N MRSA N OTHER # 1 N POLIO N LUNG DISEASE/DISORDER N HISTORY OF DRUG ABUSE N COPD N RADIATION / CHEMOTHERAPY N Other # 2 N BLOOD DISEASES N EAR OR HEARING PROBLEMS N MUMPS N SHINGLES N DEPRESSION (INCLUDING POST ) N BOWEL PROBLEMS N STROKE/TIA N ULCERS N BENIGN PROSTATIC HYPERPLASIA N MEASLES N HYPOTENSION N MYOCARDIAL INFARCTION N OBESITY N GERD/NAUSEA N ANEURYSM N URINARY/BLADDER/KIDNEY PROBLEMS N CORONARY ARTERY DISEASE (CAD) N ADDICTION CONCERNS N Impotence N ENDOMETRIOSIS N USE OF BLOOD THINNERS N SKIN PROBLEMS N GASTROINTESTINAL DISORDER N PERIPHERAL VASCULAR DISEASE N MUSCLE,JOINT OR BONE PROBLEMS N GASTROINTESTINAL BLEEDING N BLOOD CLOTS N ASTHMA N CATARACTS N ERECTILE DYSFUNCTION N VARICOSITIES N GI PROBLEMS N Low Testosterone N INFERTILITY N AIDS/HIV N CHEMOTHERAPY / RADIATION N LIVER DISEASE N MALE HYPOGONADISM N HYPERTENSION N Deficiency N TOURETTE'S N ANXIETY DISORDER N BLOOD TRANSFUSION N ANEMIA/BLOOD DISORDER N CHRONIC EAR INFECTIONS N BRONCHITIS N TUBERCULOSIS N GLAUCOMA N FOOT PROBLEM N DIVERTICULITIS N SLEEP APNEA N CHICKENPOX N INFECTIOUS DISEASE N PROSTATE N HEART ARRHYTHMIA N INSOMNIA N HIGH CHOLESTEROL / HYPERLIPIDEMIA Y EYE PROBLEMS N HYPERTHYROIDISM Y EDEMA N CHRONIC PAIN SYNDROME N HYPOTHYROIDISM N CAROTID BLOCKAGE N CONSTIPATION N BACK / NECK PROBLEMS N HAVE YOU BEEN HOSPITALIZED OR SEEN IN [facility] IN THE PAST YEAR ? N ATHEROSCLEROSIS N BREAST PROBLEMS N DIALYSIS N ECZEMA N OSTEOPOROSIS N ARTHRITIS N NO SIGNIFICANT PAST MEDICAL HISTORY N APPENDICITIS N DIABETES, TYPE N BAD TEETH N ENT N HEARTBURN / REFLUX N AUTISM SPECTRUM DISORDER (ASD) N HEPATITIS / LIVER DISEASE N GOUT N SLEEP DISORDER N ALZHEIMER'S DISEASE N Brain Problems N DEMENTIA N HERPES N SEIZURES/EPILEPSY N HEADACHES/MIGRAINES N VASCULAR DISEASE N PACEMAKER N Blood Disorder N DIZZINESS N HEART DISEASE/HEART PROBLEMS N KIDNEY DISEASE N MULTIPLE SCLEROSIS N CANCER: SPECIFY Y CARDIAC ARRHYTHMIA N ATRIAL FIBRILLATION N Gall Stones N PULMONARY EMBOLISM N AUTOIMMUNE DISEASE N Gynecological HistoryNo gynecological history recorded. Obstetrics History GPAL:G 0 P 0 0 0 0 Immunizations Vaccine Type Date Status Note Provider Nam e and Address Organization Details Recorded Time Influenza, split virus, trivalent, preservative 3 completed Not Available [facility] 11/22/2022 06:59:31 Influenza, split virus, quadrivalent, preservative 1 completed Not Available [facility] 11/22/2022 06:59:32 SARS-COV-2 (COVID-19) vaccine, UNSPECIFIED 1 completed Not Available [facility] 11/22/2022 06:59:32 SARS-COV-2 (COVID-19) vaccine, UNSPECIFIED 1 completed Not Available [facility] 11/22/2022 06:59:32 Tdap 4 completed Not Available [facility] 11/22/2022 06:59:32 Influenza, split virus, trivalent, preservative 4 completed Not Available [facility] 11/22/2022 06:59:33 Influenza, split virus, quadrivalent, PF 8 completed Not Available [facility] 11/22/2022 06:59:33 Influenza, split virus, quadrivalent, PF 2 completed Not Available [facility] 11/22/2022 06:59:33 Influenza, split virus, quadrivalent, PF 6 completed Not Available [facility] 11/22/2022 06:59:33 Influenza, split virus, quadrivalent, preservative 5 completed Not Available [facility] 11/22/2022 06:59:33 Influenza, split virus, trivalent, PF 4 completed KENN Riggs [place] [facility] [employer] [facility] 07/21/2024 15:41:10 Past Encounters Encounter ID Performer Location Encounter Start Date Encounter Closed Date Diagnosis/Indication Diagnosis SNOMED-CT Code Diagnosis ICD10 Code Diagnosis Note [id number] [facility] Internal Med [facility]candice Critical [facility] hospital Angie y , [place] [address] 04/29/2021 00:00:00 04/29/2021 15:35:28 [id number] [facility] Internal Med Dez[facility] llcandice Critical access hospital Angie y , [place] [address] 11/18/2021 00:00:00 11/18/2021 14:46:40 [id number] [facility] Internal Med Dez[facility] llcandice Critical access hospital Angie devin Aren[place], [place] [address] 04/28/2022 00:00:00 04/28/2022 15:40:14 [id number] [facility] Internal Med De[place] l[place] [address] [place] [address] [address] [place] [address] 10/27/2022 00:00:00 10/27/2022 16:07:27 [id number] Theodore Pringle MD [facility] [address] [address] [place] [address] 01/24/2023 14:17:44 01/24/2023 15:21:30 Pain in right hand [id number] 59948 M79.641 x-rays show a small bone spur and calcificat ion dorsal radial IP joint clinical evaluation confirms and mucous cyst Digital mu cous cyst of right hand [id number] M67.441 discussed the treatment options. Sterile technique standard protocol we aspirated got back a little bit a gel and injected 1 cc xylocaine 1 cc Kenalog. Put a Band-Aid over the area told her to keep it clean the night we will see her back if the cyst recurs [id number] Parker Brody MD [facility] Internal Med [facility] [address] [facility] , [place] [address] 04/27/2023 15:44:31 04/27/2023 16:52:32 Benign essential hypertension 3953051 I10 Pure hypercholesterolemia [id number] E78.00 Anxiety disorder 4609458 06 F41.9 Vitamin D deficiency 347 85364 E55.9 [id number] Parker Brody MD [facility] Internal Med [facility] [address] [address] 10/26/2023 15:55:29 10/26/2023 16:41:04 Adult health examination [id number] Z00.00 Depression screening 171 899023 Z13.31 Anxiety disorder 3657944 06 F41.9 Pure hypercholesterolemia 621696911 E78.00 Paroxysmal supraventricular tachycardia 71062330 I47.10 Essential hypertension [id number] I10 [id number] Parker Brody MD [facility] Internal Med [facility] [address] [address] 02/04/2024 16:32:12 02/04/2024 16:55:32 Obstructive sleep apnea syndrome 46555024 G47.33 Essential hypertension 41218828 I10 Pure hypercholesterolemia 693545894 E78.00 [id number] Esvin Gillespie MD [facility] [address] [phone] 03/19/2024 09:55:39 03/20/2024 08:47:34 Obstructive sleep apnea syndrome 84875778 G47.33 G47.36 G47.61 [id number] Parker Brody MD [facility] Internal Med [facility] [address] [place] [address] 05/07/2024 16:33:19 05/07/2024 17:01:04 Benign essential hypertension 3736472 I10 Pure hypercholesterolemia 355139958 E78.00 Gastroesop hageal reflux disease 852756634 K21.9 Anxiety disorder 6286348 06 F41.9 [id number] Esvin Gillespie MD [place] [address] 06/09/2024 10:29:35 06/09/2024 14:06:56 Obstructive sleep apnea syndrome 21390818 G47.33 G47.36 G47.61 [id number] Esvin Gillespie MD [facility] [address] 07/21/2024 13:56:10 07/22/2024 13:24:27 Obstructive sleep apnea syndrome 72768115 G47.33 [id number] Esvin Gillespie MD [facility] [address] 10/20/2024 13:58:53 10/20/2024 16:07:48 Obstructive sleep apnea syndrome 38572382 G47.33 Health Concerns Section Related Observation LastModified by Organization Detai ls LastModified Time None Recorded Concern Status LastModified by Organization Details LastModified Time None Recorded Advance Directives Directive N: Payers Encounter Date Sequence Insurance Name Policy Number Policy Gonsalez Covered Member ID Gonsalez Member ID Guarantor Name 03/19/2024 1 [employer] (PPO) [id number] Blake Broussardert [id number] Priscilla Baires 05/07/2024 1 [employer] (PPO) [id number] Blake Broussardert [id number] Priscilla Baires 06/09/2024 1 U[employer] (PPO) [id number] Blake Broussardert [id number] Priscilla Baires 07/21/2024 1 U[employer] (PPO) [id number] Blake Broussardert [id number] Priscilla Baires 10/20/2024 1 UMR (PPO) [id number] Blake Galvan clinton [id number] Priscilla Lynn Dequan Notes Date Note Type Note Provider Name and Address Organization Details Recorded Time 4 text/html Primary care/Referring provider: Parker Brody MD During the [facility] home sleep study on 03/12/24, AHI = 14, supine AHI = 15. At home, the patient sleeps from 10 pm to 6 am and wakes up with an alarm. Snoring: heavy, since . Snorting: yes Choking: yes Coughing: yes Gasping: yes Gagging: no Sighing: yes Witnessed apnea: yes Twitching or jerking of leg(s), arm(s), body, head: yes Teeth grinding: no Teeth clenching: no Sleeptalking: no Sleepwalking: no Sleep crying: no Bedwetting: no Tongue/lip/gum/cheek biting: no Sleeping with open mouth: yes Sleep paralysis: no Hypnagogic hallucinations: no Hypnopompic hallucinations: no Vivid dreams: no Difficulty with sleep onset: no Difficulty with sleep maintenance: yes Sleep interruptions: for no known reasons Patient wakes up with: fatigue, xerostomia, sore throat, cognitive impairment Daytime cataplexy: no Morning hypersomnolence: yes Afternoon hypersomnolence: yes Caffeine sources in diet: tea 4 oz per day, chocolate 1 candy bar per week Associated medical and psychiatric conditions: Congestive heart failure: no Coronary artery disease: no Myocardial infarction: no Hypertension: yes Stroke: no Bronchial asthma: no Chronic obstructive pulmonary disease: no Depression: no Bipolar disorder: no Anxiety: yes Panic disorder: no Posttraumatic stress disorder: no Attention deficit and hyperactivity disorder: no Obsessive Compulsive disorder: no Schizophrenia: no Schizoaffective disorder: no Personality disorder: no Chronic analgesic use: no Chronic sedative/hypnotic use: no EPWORTH SLEEPINESS SCALE (ESS) CHANCE OF DOZING SCORE 0 = would never doze 1 = slight chance of dozing 2 = moderate chance of dozing 3 = high chance of dozing SITUATION AND CHANCE OF DOZING Sitting and reading - 1 Watching television - 2 Sitting inactive in a public place (e.g. a theater or meeting) - 2 As a passenger in a car for an hour without a break - 1 Lying down to rest in the afternoon when circumstances permit - 2 Sitting and talking to someone - 0 Sitting quietly after lunch without alcohol - 2 In a car, while stopped for a few minutes in the traffic - 0 TOTAL SCORE 10 Subjectively, patient has a moderate chance of dozing. Esvin Gillespie MD [address] [facility], [facility] [address], [place], [address], [place] [facility] 03/19/2024 11:08:01 4 text/html Patient Name: Priscilla BairesDate Of Service: Sunday ( 05.07.2024 ): 1960 Age: 63 There has been approximately a 4 lb weight gain since 02/04/2024. This represents approximately a 2.6% change in weight. Weight change attributable to lifestyle changes. Vital Signs:Blood Pressure: Sitting Rt. Arm 144/88Pulse: Sitting 82 /min and RegularRespiratory Rate: 14Height 66 in or 1.7 mWeight 159 lb or 72.1 kgBMI 25.7Temperature: 97.9 F or 36.6 CPulse Oximetry: 99 % at rest on no oxygen Chief Complaint: Addressed in HPI Problems or conditions discussed in the HPI were the only ones reviewed during the encounter.Only social and family history addressed in the HPI were reviewed during this encounter. Attendant(s): NoneConstitutional and Systemic Symptoms:none Medication Reconciliation: from medication list. Phutjdfexir98/21/2023: CT scan of the abdomen renal stone protocol no evidence any renal calculi noted. No obstructive uropathy. 04/09/2023: CT scan of the abdomen pelvis with and without contrast reveals no cause for any gross hematuria. There is Hepatic cysts noted measuring 3.5-2.5 minutes cm in diameter. Small left renal cysts are noted. Measuring 7.5-9.5 mm. History of Present Illness #1. Essential Hypertension: Stage: Stage I Interval Neurological Complaints no headaches, dizziness, weakness, visual changes, ataxia, aphasia and apraxia. No shortness of breath, orthopnea or cardiovascular symptoms. No other symptoms related to end organ damage. Pressure has been under excellent control. Currently normal. No other end organ symptoms or findings. Therapy reviewed regarding management of hypertension and includes salt restriction and Lisinopril. #2. Type II Hypercholesterolaemia: Currently taking medication and tolerating well. No interval complaints of any muscle pain or arthralgia. No significant liver changes with medications. Last lipid panel: fair control. Therapy reviewed regarding treatment of cholesterol management and include diet and Lipitor. #3. Hx of esophageal reflux currently stable. Hx of Complications: none The severity, duration and intensity of symptoms have improved. Frequency: most meals Treatment consists medications taken on intermittent basis. Current therapy includes Omeprazole. There has been no nausea, eructation, vomiting, hematemesis, dysphagia, velopharyngeal insufficiency and odynophagia. No change in he frequency or intensity of symptoms. Has had no melena. Has had no . Discussed use of H2 antagonists and the possibility of trying to reduce the frequency of the use of any PPI inhibitors and try H2 antagonists to see if symptoms can be controlled with lease intensive therapy since a number of complications are associated with chronic prolonged use of PPI inhibitors. #4. Anxiety Disorder: History of anxiety disorder. There has been no panic attacks. No interval complaints of any vegetative or other signs of depression. Taking Ativan. Discussed possibility of decreasing and weaning off medication. Feels that current regimen is working fine and wishes not to change the current treatment regimen. Medication not causing any sedation or cognitive dysfunction and there is no contraindication to continue current therapy. Active Medication ListLipitor 20 MG (TABLET - ORAL) One Daily For CholesterolLisinopril 20 MG (TABLET - ORAL) Take One And A Half Tablet DailyAtivan 1 MG (TABLET - ORAL) One DailyIpratropium [place] 21 UG SPRAY Two Puffs Each Nostril TidOmeprazole 20 MG CAPSULE, DELAYED RELEASE One Daily Adverse Drug Reactions ReviewedPenicillin Rash And HivesBiaxin Abdominal PainLevaquin RashVibramycin Gi Complaints Social HistoryDoes not smoke cigarettes. 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 [id number] HistoryMother 82 living years old some eyesight problemsFather Living 84 years old CODP2 Sisters 2 Living HTN(2) and Cholesterol(2)Mother Hx: HTN, Osteoporosis and macular degeneration TEST RESULT RANGE UNITSCBC (INCLUDES DIFF/PLT) Date: 12/12/2023WHITE BLOOD CELL COUNT 5.1 3.8-10.8 THOUSAND/ULHEMOGLOBIN 14.9 11.7-15.5 G/DLHEMATOCRIT 43.8 35.0-45.0 %PLATELET COUNT 212 140-400 THOUSAND/ULCOMPREHENSIVE METABOLIC PANEL Date: 12/12/2023SODIUM 139 135-146 MMOL/LPOTASSIUM 4.4 3.5-5.3 MMOL/LGLUCOSE 92 65-99 MG/DLUREA NITROGEN (BUN) 14 7-25 MG/DLCREATININE 0.89 0.50-1.05 MG/DLEGFR 74 > OR = 60 ML/MIN/[id number], TOTAL 0.9 0.2-1.2 MG/DLALKALINE PHOSPHATASE 24 37-153 U/LAST 15 10-35 U/LALT 14 6-29 U/LLIPID PANEL, STANDARD Date: 4CHOLESTEROL, TOTAL 142 <200 MG/DLHDL CHOLESTEROL 54 > OR = 50 MG/DLTRIGLYCERIDES 121 <150 MG/DLLDL-CHOLESTEROL 68 MG/DL (CALC)T4, FREE Date: 12/12/2023T4, FREE 1.1 0.8-1.8 NG/DLTSH Date: 12/12/2023TSH 3.97 0.40-4.50 MIU/L Parker Brody MD [address] [place] [address], [id number], [place] [facility] 05/07/2024 16:54:00 4 text/html Primary care/Referring provider: Parker Brody MD CC: Patient is on autoCPAP with uncontrolled AHI During the [facility] home sleep study on 03/12/24, AHI = 14, supine AHI = 15. At home since 05/19/24, the patient uses a ResMed AirSense 11 autoset unit with heated humidification. The patient does not need the ramp to start low and go up slowly on the pressure. There is no xerostomia in a.m. There is no hose/mask condensation with water. The patient wears a ResMed medium AirTouch F20 full face mask without chin strap. There is no claustrophobia, no nostril/nose bridge irritation, no facial rash, no facial numbness, no nosebleeding. The patient feels more refreshed upon waking and daytime alertness is improved. Energy levels are sustained until early afternoon, around 2 pm. The patient sleeps from 10 pm to 6 am and wakes up with an alarm. Snoring: heavy, since .Snorting: yesChoking: yesCoughing: yesGasping: yesGagging: noSighing: yesWitnessed apnea: yesTwitching or jerking of leg(s), arm(s), body, head: yesTeeth grinding: noTeeth clenching: noSleeptalking: noSleepwalking: noSleep crying: noBedwetting: noTongue/lip/gum/cheek biting: noSleeping with open mouth: yesSleep paralysis: noHypnagogic hallucinations: noHypnopompic hallucinations: noVivid dreams: noDifficulty with sleep onset: noDifficulty with sleep maintenance: yesSleep interruptions: for no known reasonsPatient wakes up with: fatigue, xerostomia, sore throat, cognitive impairmentDaytime cataplexy: noMorning hypersomnolence: yesAfternoon hypersomnolence: yesCaffeine sources in diet: tea 4 oz per day, chocolate 1 candy bar per week Associated medical and psychiatric conditions:Congestive heart failure: noCoronary artery disease: noMyocardial infarction: noHypertension: yesStroke: noBronchial asthma: noChronic obstructive pulmonary disease: noDepression: noBipolar disorder: noAnxiety: yesPanic disorder: noPosttraumatic stress disorder: noAttention deficit and hyperactivity disorder: noObsessive Compulsive disorder: noSchizophrenia: noSchizoaffective disorder: noPersonality disorder: noChronic analgesic use: noChronic sedative/hypnotic use: no EPWORTH SLEEPINESS SCALE (ESS) CHANCE OF DOZING SCORE0 = would never doze1 = slight chance of dozing2 = moderate chance of dozing3 = high chance of dozing SITUATION AND CHANCE OF DOZINGSitting and reading - 2Watching television - 2Sitting inactive in a public place (e.g. a theater or meeting) - 0As a passenger in a car for an hour without a break - 0Lying down to rest in the afternoon when circumstances permit - 1Sitting and talking to someone - 0Sitting quietly after lunch without alcohol - 0In a car, while stopped for a few minutes in the traffic - 0TOTAL SCORE 5Subjectively, patient has a slight chance of dozing. Esvin Gillespie MD [address] [facility], [facility] [address], [place], [address], [place] [facility] 06/09/2024 11:45:31 4 text/html Primary care/Referring provider: Parker Brody MD CC: Patient is on autoCPAP with uncontrolled AHI During the [facility] home sleep study on 03/12/24, AHI = 14, supine AHI = 15. At home since 05/19/24, the patient uses a ResMed AirSense 11 autoset unit with heated humidification. The patient does not need the ramp to start low and go up slowly on the pressure. There is no xerostomia in a.m. There is no hose/mask condensation with water. The patient wears a ResMed medium AirTouch F20 full face mask without chin strap. There is no claustrophobia, no nostril/nose bridge irritation, no facial rash, no facial numbness, no nosebleeding. The patient feels more refreshed upon waking and daytime alertness is improved. Energy levels are sustained until early afternoon, around 2 pm. The patient sleeps from 10 pm to 6 am and wakes up with an alarm. Snoring: heavy, since .Snorting: yesChoking: yesCoughing: yesGasping: yesGagging: noSighing: yesWitnessed apnea: yesTwitching or jerking of leg(s), arm(s), body, head: yesTeeth grinding: noTeeth clenching: noSleeptalking: noSleepwalking: noSleep crying: noBedwetting: noTongue/lip/gum/cheek biting: noSleeping with open mouth: yesSleep paralysis: noHypnagogic hallucinations: noHypnopompic hallucinations: noVivid dreams: noDifficulty with sleep onset: noDifficulty with sleep maintenance: yesSleep interruptions: for no known reasonsPatient wakes up with: fatigue, xerostomia, sore throat, cognitive impairmentDaytime cataplexy: noMorning hypersomnolence: yesAfternoon hypersomnolence: yesCaffeine sources in diet: tea 4 oz per day, chocolate 1 candy bar per week Associated medical and psychiatric conditions:Congestive heart failure: noCoronary artery disease: noMyocardial infarction: noHypertension: yesStroke: noBronchial asthma: noChronic obstructive pulmonary disease: noDepression: noBipolar disorder: noAnxiety: yesPanic disorder: noPosttraumatic stress disorder: noAttention deficit and hyperactivity disorder: noObsessive Compulsive disorder: noSchizophrenia: noSchizoaffective disorder: noPersonality disorder: noChronic analgesic use: noChronic sedative/hypnotic use: no EPWORTH SLEEPINESS SCALE (ESS) CHANCE OF DOZING SCORE0 = would never doze1 = slight chance of dozing2 = moderate chance of dozing3 = high chance of dozing SITUATION AND CHANCE OF DOZINGSitting and reading - 2Watching television - 2Sitting inactive in a public place (e.g. a theater or meeting) - 0As a passenger in a car for an hour without a break - 0Lying down to rest in the afternoon when circumstances permit - 2Sitting and talking to someone - 0Sitting quietly after lunch without alcohol - 0In a car, while stopped for a few minutes in the traffic - 0TOTAL SCORE 6Subjectively, patient has a slight chance of dozing. Esvin Gillespie MD [address] [place] [address], [phone], [place] [facility] 07/21/2024 14:53:39 5 text/html Primary care/Referring provider: Parker Brody MD CC: The CPAP sometimes feels like a rocket launch. It would wake me up. I would have to remove the mask and put it back on. During the [facility] home sleep study on 03/12/24, AHI = 14, supine AHI = 15. At home since 07/21/24, the patient uses a ResMed AirSense 11 autoset unit with heated humidification. The patient does not need the ramp to start low and go up slowly on the pressure. There is no xerostomia in a.m. There is no hose/mask condensation with water. The patient wears a ResMed medium AirTouch F20 full face mask without chin strap. There is no claustrophobia, no nostril/nose bridge irritation, no facial rash, no facial numbness, no nosebleeding. The patient feels more refreshed upon waking and daytime alertness is improved. Energy levels are sustained until early afternoon, around 2 pm. The patient sleeps from 10 pm to 6 am and wakes up with an alarm. Snoring: heavy, since .Snorting: yesChoking: yesCoughing: yesGasping: yesGagging: noSighing: yesWitnessed apnea: yesTwitching or jerking of leg(s), arm(s), body, head: yesTeeth grinding: noTeeth clenching: noSleeptalking: noSleepwalking: noSleep crying: noBedwetting: noTongue/lip/gum/cheek biting: noSleeping with open mouth: yesSleep paralysis: noHypnagogic hallucinations: noHypnopompic hallucinations: noVivid dreams: noDifficulty with sleep onset: noDifficulty with sleep maintenance: yesSleep interruptions: for no known reasonsPatient wakes up with: fatigue, xerostomia, sore throat, cognitive impairmentDaytime cataplexy: noMorning hypersomnolence: yesAfternoon hypersomnolence: yesCaffeine sources in diet: tea 4 oz per day, chocolate 1 candy bar per week Associated medical and psychiatric conditions:Congestive heart failure: noCoronary artery disease: noMyocardial infarction: noHypertension: yesStroke: noBronchial asthma: noChronic obstructive pulmonary disease: noDepression: noBipolar disorder: noAnxiety: yesPanic disorder: noPosttraumatic stress disorder: noAttention deficit and hyperactivity disorder: noObsessive Compulsive disorder: noSchizophrenia: noSchizoaffective disorder: noPersonality disorder: noChronic analgesic use: noChronic sedative/hypnotic use: no EPWORTH SLEEPINESS SCALE (ESS) CHANCE OF DOZING SCORE0 = would never doze1 = slight chance of dozing2 = moderate chance of dozing3 = high chance of dozing SITUATION AND CHANCE OF DOZINGSitting and reading - 2Watching television - 2Sitting inactive in a public place (e.g. a theater or meeting) - 0As a passenger in a car for an hour without a break - 0Lying down to rest in the afternoon when circumstances permit - 0Sitting and talking to someone - 0Sitting quietly after lunch without alcohol - 0In a car, while stopped for a few minutes in the traffic - 0TOTAL SCORE 4Subjectively, patient has a slight chance of dozing. Esvin Gillespie MD [address] [address], [place], [address], [facility] [employer] 10/20/2024 14:58:44 OBGyn Episode No OBEpisode recorded.
--- OUTSIDE RECORDS SUMMARY | 2024-10-31 00:09 | XMS_ITS | Clinical Summary ---
Author Organization [facility] [address] [facility] Address [address] [place] [address] Care Team Providers Care Laminator Hand Name Role Phone Parker Brody MD Primary Care Provider Allergies Active Allergy Reactions Criticality Noted Date Comments Amoxicillin Clarithromycin Other (See comments) Low 05/23/2022 Doxycycline Other (See comments) Low 05/23/2022 Levofloxacin Rash Medium 02/19/2020 Penicillins Hives Medium Sulfa (Sulfonamide Antibiotics) Hives Medium / Sulfamethoxazole-Trimethoprim Hives Medium 2019 Medications atorvastatin (LIPITOR) 20 mg tablet Active vit D3-vit C-vaekoqpli-typh [phone] iuho-ndo-kw-mg tablet Take by mouth Active LORazepam (ATIVAN) 0.5 mg tablet Take 1 tablet (0.5 mg total) by mouth 2 (two) times a day as needed for anxiety 20 tablet 2 Active cream base no.56, bulk, cream Testosterone 0.2% Apply 1 mL every day as directed. 30 g 5 Active naproxen (NAPROSYN) 375 mg tablet naproxen 375 mg tablet ONE TWICE A DAY Active testosterone micronized, bulk, 100 % powder 2 022 Active albuterol HFA (PROVENTIL HFA,VENTOLIN HFA,PROAIR HFA) 90 mcg/actuation inhaler albuterol sulfate HFA 90 mcg/actuation aerosol inhaler Inhale 2 puffs every 6 hours by inhalation route. Active azithromycin (ZITHROMAX) 250 mg tablet Zithromax Z-Mahamed 250 mg tablet Take 2 TABLET EVERY DAY by oral route for 1 day then one daily Active beclomethasone (QNASL) 80 mcg/actuation HFA aerosol inhaler QNASL 80 mcg/actuation nasal aerosol spray Active betamethasone, augmented, (DIPROLENE AF) 0.05 % cream Diprolene AF 0.05 % topical cream Apply 1 application twice a day by topical route. Active clindamycin (CLEOCIN) 150 mg capsule clindamycin HCl 150 mg capsule Take 1 capsule every 6 hours by oral route. Active hydrOXYzine (ATARAX) 10 mg tablet hydroxyzine HCl 10 mg tablet Take by oral route four times daily PRN for itching Active methylPREDNISolon e (MEDROL DOSEPACK) 4 mg Dosepack FOLLOW PACKAGE DIRECTIONS 022 Active HYDROcodone-chlor pheniramine ER (TUSSIONEX PENNKINETIC) 2-1.6 mg/mL ER suspension hydrocodone 10 mg-chlorphenira mine 8 mg/5 mL oral susp extend.rel 12hr Active cream base no.9, bulk, cream 1 mL daily Apply 1 ml of testosterone cream daily to forearm 30 g 5 024 Active ipratropium (ATROVENT) 21 mcg (0.03 %) nasal spray INSTILL TWO SPRAYS IN EACH NOSTRIL EVERY DAY TO THREE TIMES DAILY Active omeprazole (PriLOSEC) 20 mg capsule TAKE 1 CAPSULE BY MOUTH DAILY AROUND SUPPER TIME 024 Active ondansetron ODT (ZOFRAN-ODT) [address] 1 tablet twice a day by translingual route as needed. 023 Active lisinopriL (PRINIVIL,ZESTRIL ) 40 mg tablet 024 Active ondansetron (ZOFRAN) 4 mg tablet TAKE 2 TABLETS BY MOUTH TWICE DAILY NEEDED Active triamcinolone (KENALOG) 0.1 % creamIndications: Skin Inflammation Apply topically 2 (two) times a day 60 g 1 024 Active estradiol-norethi ndrone (ACTIVELLA) 1-0.5 mg per tablet TAKE 1 TABLET DAILY 84 tablet 3 025 Active estradiol-norethi ndrone (ACTIVELLA) 1-0.5 mg per tabletIndications :Vasomotor Symptoms associated with Menopause Take 1 tablet by mouth daily 84 tablet 024 2024 Discontinued Active Problems Problem Noted Date Diagnosed Date Post-menopausal bleeding 03/20/2023 Osteopenia after menopause 05/24/2022 Assessment & Plan (05/24/2022 8:34 AM CDT): Encourage Calcium 600 mg BID and Vitamin D3, 2000 Ius/day; encourage weight bearing exercise (walking, free weights) 3-4x/week. List of calcium rich/fortified foods given as well as examples of OTC calcium supplements available. Hormone replacement therapy (HRT) 05/18/2021 Assessment & Plan (09/01/2024 7:20 AM SINGLE STAYER OPERATOR): Risks and benefits of hormone replacement (HRT) for vasomotor symptoms related to menopause discussed. Patient aware risks associated with HRT include increased risk of blood clots, heart attack, stroke, and increased risk of breast cancer. Patient verbalizes understanding of risk and benefits and wishes to proceed with HRT. - Continue current dose of combined oral estrogen/progesterone therapy. Patient/pharmacy to notify office when refill needed. Assessment & Plan (06/06/2023 4:07 PM CDT): Risks and benefits of hormone replacement (HRT) for vasomotor symptoms related to menopause discussed. Patient aware risks associated with HRT include increased risk of blood clots, heart attack, stroke, and increased risk of breast cancer. Patient verbalizes understanding of risk and benefits and wishes to proceed with HRT. Continue with Activella and Testosterone cream as directed. Will call when refills needed. Assessment & Plan (05/24/2022 8:35 AM CDT): Risks vs benefits of HRT discussed such as increased risk of blood clots leading to possible heart attack, stroke, and increased risk of breast cancer; pt. verbalizes understanding and wishes to proceed with HRT. Refill on oral HRT sent to [facility]. The testosterone cream will be refilled at [facility]. Order to have testosterone level checked given and patient plans to have labs drawn at [facility]. Assessment & Plan (05/18/2021 4:50 PM CDT): Risks vs benefits of HRT discussed such as increased risk of blood clots leading to possible heart attack, stroke, and increased risk of breast cancer; pt. verbalizes understanding and wishes to proceed with HRT. Refill on Activella sent to mail order pharmacy per patient request. Chronic vulvitis 05/18/2021 Assessment & Plan (05/18/2021 4:53 PM CDT): Encouraged to limit pad use if possible and to use a barrier ointment such as A&D ointment to external labia and perineum to keep moisture off vulvar area. Petroleum jelly okay as well for external use. Rx for triamcinolone sent to pharmacy for patient to use as needed when skin becomes irritated, uncomfortable. Annual physical exam 02/19/2020 Screening for cervical cancer 02/19/2020 Anxiety 02/19/2020 Hypertension 02/07/2014 Overview (12/28/2016): HTN (hypertension) Arthralgia 02/07/2014 Overview (12/30/2016): Joint pain Hyperlipidemia 02/07/2014 Overview (12/30/2016): Hyperlipidemia Encounters Date Type Department Care Team Description 10/08/2024 11:57 AM SINGLE STAYER OPERATOR - 10/08/2024 11:59 PM SINGLE STAYER OPERATOR Hospital Encounter [facility] [address] [place] [address] Encounter for screening mammogram for malignant neoplasm of breast Discharge Disposition: Discharge to home or self care 10/08/2024 11:57 AM SINGLE STAYER OPERATOR - 10/08/2024 11:59 PM SINGLE STAYER OPERATOR Hospital Encounter [facility] [address] [place] [address] Screening for osteoporosis Discharge Disposition: Discharge to home or self care 08/11/2024 Telephone [facility] Macias [address] [place] [address] [address] [place] [phone] iRn Jaeger MA Test Results 08/08/2024 2:15 PM SINGLE STAYER OPERATOR [facility] [place] [facility] [address] [place] [address] [address] [place] [phone] Sarai Salazar NP Well woman exam (Primary Dx); Encounter for screening mammogram for malignant neoplasm of breast; Hormone replacement therapy (HRT); Chronic vulvitis; Vaginal discharge; Decreased libido; Screening for osteoporosis 08/01/2024 3:00 PM SINGLE STAYER OPERATOR Ancillary Procedure [facility] Macias [address] [place] [address] [address] [place] [phone] Endometrial thickening on ultrasound from Last 3 Months Immunizations Name Administration Dates Next Due Influenza, Quadrivalent, Spl it, Preservative Free, Intramuscular 07/24/2019 Influenza, Unspecified 09/24/2018(Deferr ed: Patient Refused),09/24/2017(Deferred: Patient Refused) Surgical History Surgery Date Site/Laterality Comments SKIN CANCER EXCISION 12/24/2019 - 01/22/2020 face BREAST BIOPSY 09/24/1996 - 09/23/1997 Right hematoma removed surgically near [place] Medical History Medical History Date Comments Kidney stones IBS (irritable bowel syndrome) Allergic Poison mert Skin cancer neck Squamous cell carcinoma of skin of face Family History Medical History Relation Name Comments COPD Father Hyperlipidemia Mother Hypertension Mother Hypertension Sister 1 Breast cancer Neg Hx Ovarian cancer Neg Hx Thyroid cancer Neg Hx Relation Name Status Comments Father Alive Mother Alive Sister 1 Alive Sister 2 Alive Social History Tobacco Use Types Packs/Day Years Used Date Smoking Tobacco: Never Smokeless Tobacco: Never Tobacco Cessation:Counseling Given: Not Answered Alcohol Use Standard Drinks/Week Comments No 0 (1 standard drink = 0.6 oz pur e alcohol) PHQ-2 Answer Date Recorded PHQ-2 Total Score (If total score is 3 or more points, staff should administer the PHQ-9) 0 08/08/2024 Comments No Sex and Gender Information Value Date Recorded Sex Assigned at Not on file Legal Sex Female 2:28 AM SINGLE STAYER OPERATOR Gender Identity Female 05/11/2020 9:19 PM CDT Sexual Orientation Straight 05/11/2020 9: 19 PM CDT Obstetrics History Para Term AB IAB SAB Ectopic Multiple Livin g Live Births 2 2 1 1 2 2 Date Outcome GA Total Labor Labor/2nd/3rd Weight Sex Type Anes PTL Mone A1 A5 Name Clin 8 Term 39w 0d 2.637 kg (5 lb 13 oz) F Vag-S pont None N Living Complications:None 4 36w 0d 2.736 kg (6 lb 0.5 oz) F None Living Complications:None Last Filed Vital Signs Vital Sign Reading Time Taken Comments Blood Pressure 180/80 08/08/2024 2:07 PM SINGLE STAYER OPERATOR Pulse 90 08/14/2020 3:15 PM SINGLE STAYER OPERATOR Temperature 37.1 C (98.7 F) 08/14/2020 3:15 PM SINGLE STAYER OPERATOR Respiratory Rate 20 08/14/2020 3:15 PM SINGLE STAYER OPERATOR Oxygen Saturation 98% 08/14/2020 3:15 PM SINGLE STAYER OPERATOR Inhaled Oxygen Concentration - - Weight 71.7 kg (158 lb) 08/08/2024 2:07 PM SINGLE STAYER OPERATOR Height 167.6 cm (5' 6 ) 10/08/2024 12:18 PM SINGLE STAYER OPERATOR Body Mass Index 24.75 06/06/2023 3:17 PM CDT Plan of Treatment Health Maintenance Due Date Last Done Comments Hepatitis C Screening 1962 Hepatitis B Screening 1980 Zoster Vaccine (1 of 2) 2012 Colon Cancer Screening-Colonoscopy 02/06/2024 02/05/2019 Cervical Cancer Screening 06/06/2024 06/06/2023, DTaP/Tdap/Td Vaccine (2 - Td or Tdap) 08/05/2024 08/05/2014 Depression Screening 08/08/2025 08/08/2024, 05/23/2022, 05/18/2021, Additional history exists Regular Well Visit/Exam 18-64 08/08/2025 08/08/2024, 06/06/2023, 05/23/2022, Additional history exists Breast Cancer Screening-Mammogram 10/08/2025 10/08/2024, 07/25/2023, 06/22/2022, Additional history exists Colon Cancer Screening-CT Colonography Discontinued 02/05/2019 Colon Cancer Screening-DNA Stool Discontinued 02/05/2019 Colon Cancer Screening-FIT Discontinued 02/05/2019 Colon Cancer Screening-Sigmoidoscopy Discontinued 02/05/2019 Influenza Vaccine Completed 07/21/2024, , 07/03/2021, Additional history exists Pneumococcal vaccine <65 Aged Out No longer eligible based on patient's age to complete this topic Procedures Procedure Name Priority Date/Time Associated Diagnosis Comments SCREENING MAMMOGRAM BILATERAL W JATINDER Schedule Routine, Read Routine (OP Routine) 10/08/2024 12:27 PM SINGLE STAYER OPERATOR Encounter for screening mammogram for malignant neoplasm of breast DEXA AXIAL SKELETON BONE DENSITY 1 OR MORE SITES Schedule Routine, Read Routine (OP Routine) 10/08/2024 12:11 PM SINGLE STAYER OPERATOR Screening for osteoporosis SURESWAB ADVANCED VAGINITIS, TMA Routine 08/08/2024 3:01 PM SINGLE STAYER OPERATOR Vaginal discharge US TRANSVAGINAL Schedule Routine, Read Routine (OP Routine) 08/01/2024 3:13 PM SINGLE STAYER OPERATOR Endometrial thickening on ultrasound PAP AND HPV, REFLEX TO HPV GENOTYPES Routine 06/06/2023 3:58 PM CDT Well woman exam COLONOSCOPY Routine 02/05/2019 from Last 3 Months or Most Recently Relevant to Health Maintenance Results * Screening Mammogram Bilateral W Jatinder (10/08/2024 12:27 PM SINGLE STAYER OPERATOR) Anatomical Region Laterality Modality Breast Bilateral Mammography 10/08/2024 12:3 1 PM SINGLE STAYER OPERATOR Impressions 10/08/2024 12:31 PM SINGLE STAYER OPERATOR No evidence of malignancy in either breast. FINAL ASSESSMENT: BI-RADS Category 2: Benign. RECOMMENDATION: Recommend return for annual screening mammogram in 12 months. Electronically signed by: Moe Jose M.D. Narrative 10/08/2024 12:31 PM SINGLE STAYER OPERATOR EXAMINATION: BILATERAL SCREENING MAMMOGRAM COMPARISON: All prior mammograms dating back to 2022. TECHNIQUE: Full-field 2D and digital breast tomosynthesis (DBT) images were obtained. CAD was utilized. BREAST PARENCHYMAL COMPOSITION: The breasts are heterogenously dense, which may obscure small masses. FINDINGS: Small benign-appearing circumscribed low-density masses in both breasts have not suspiciously changed in the interval and likely represent benign cysts. There is no definite new suspicious finding in either breast on mammogram. us Sarai Salzaar NP IMG MAMMO PROCEDURES Final Resul t * Dexa Axial Skeleton Bone Density 1 or 2 Site (10/08/2024 12:11 PM SINGLE STAYER OPERATOR) Anatomical Region Laterality Modality Body N/A Other 10/08/2024 6:00 PM SINGLE STAYER OPERATOR Narrative 10/08/2024 6:02 PM SINGLE STAYER OPERATOR EXAM DESCRIPTION: DEXA AXIAL SKELETON BONE DENSITY 1 OR MORE SITES REASON FOR STUDY: 64 y/o year old F with given history of: screening for osteoporosis Screening Medical Assistant Supervisor/Model: [employer] (S/N [id number]) Facility LSC value of 0.022 for the AP spine and 0.027 for the femur. CLINICAL INFORMATION: Current height: 66 inches Maximum height: 66 inches Weight: 158 pounds Risk factors: Postmenopausal COMPARISON: 11/28/2021 Dissimilar scan types or analysis methods precludes assessment for calculating a significant change. FINDINGS: AP LUMBAR SPINE L1-L4: Total BMD is 1.050 g/cm2 T-score is 0.0 LEFT HIP: Total BMD is 0.906 g/cm2 T-score is -0.3 Femoral neck BMD is 0.697 g/cm2 T-score is -1.4 FRAX: 10 year risk for a major osteoporotic fracture is 8.1 %, 10 year risk for a hip fracture is 0.6 % IMPRESSION: Low Bone Mass. REFERENCE: Bone mineral density: T-Score: Normal (T-score above or = -1.0) Low bone mass (T-score between -1.0 and -2.5) replaces the previously used term osteopenia Osteoporosis (T-score = or below -2.5) Z-Score: Within the expected range for age (Z-score above -2.0) Below the expected range for age (Z-score is -2.0 or below) Please see below follow up recommendations. Medical evaluation for secondary causes of low bone mineral density may be appropriate. FRAX is a World Health Organization validated fracture risk assessment tool that calculates a person's 10 year probability of a major osteoporosis related fracture and hip fracture. According to the National Osteoporosis Foundation guidelines, postmenopausal women and men age 50 or older with low bone mass and a 10 year probability of a major osteoporosis related fracture = or greater than 20% or a 10 year probability of a hip fracture = or greater than 3% should be considered for pharmacological treatment for the prevention of osteoporosis. For further information, including treatment recommendations, please refer to the 2019 ISCD Official Positions (http://www.iscd.org) and the NOF's Clinician's Guide to Prevention and Treatment of Osteoporosis (http://www.nof.org/professionals/clinical-guidelines) THIS IS AN ELECTRONICALLY VERIFIED FINAL REPORT 10/08/2024 6:02 PM - Electronically signed by Sang Dumont M.D. 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 CLINICAL INFORMATION: Current height: 66 inches Maximum height: 66 inches Weight: 158 pounds Risk factors: Postmenopausal COMPARISON: 11/28/2021 Dissimilar scan types or analysis methods precludes assessment for calculating a significant change. FINDINGS: AP LUMBAR SPINE L1-L4: Total BMD is 1.050 g/cm2 T-score is 0.0 LEFT HIP: Total BMD is 0.906 g/cm2 T-score is -0.3 Femoral neck BMD is 0.697 g/cm2 T-score is -1.4 FRAX: 10 year risk for a major osteoporotic fracture is 8.1 %, 10 year risk fora hip fracture is 0.6 % IMPRESSION: Low Bone Mass. REFERENCE: Bone mineral density: T-Score: Normal (T-score above or = -1.0) Low bone mass (T-score between -1.0 and -2.5) replaces thepreviously used term osteopenia Osteoporosis (T-score = or below -2.5) Z-Score: Within the expected range for age (Z-score above -2.0) Below the expected range for age (Z-score is -2.0 or below) Please see below follow up recommendations. [facility] causes of low bone mineral density may be appropriate. FRAX is a World Health Organization validated fracture risk assessmenttool that calculates a person's 10 year probability of a major osteoporosisrelated fracture and hip fracture. According to the National OsteoporosisFoundation guidelines, postmenopausal women and men age 50 or older with low bonemass and a 10 year probability of a major osteoporosis related fracture = or greater than 20% or a 10 year probability of a hip fracture = or greaterthan 3% should be considered for pharmacological treatment for the preventionof osteoporosis. For further information, including treatment recommendations, please referto the 2019 ISCD Official Positions (http://www.iscd.org) and the NOF's Clinician's Guide to Prevention and Treatment of Osteoporosis (http://www.nof.org/professionals/clinical-guidelines) THIS IS AN ELECTRONICALLY VERIFIED FINAL REPORT 10/08/2024 6:02 PM - Electronically signed by Sang Dumont M.D. MF: [email or web address] Report ID: [id number] Reading Location: [place] [address] Sarai Salazar NP IMG DXA PROCEDURES Final Result * (ABNORMAL) SureSwab Advanced Vaginitis, TMA Endocervical (08/08/2024 3:01 PM SINGLE STAYER OPERATOR) Pathologist [facility] ADV Bacterial vaginosis (BV), TMA NEGATIVE NEGATIVE [facility] Sondra species DETECTED(A) NOT DETECTED [facility] Sondra glabrata NOT DETECTED NOT DETECTED [facility] Comment: Sondra species C. albicans, C. tropicalis, C. parapsilosis, and/or C. dubliniensis can be detected, but not differentiated, in the Sondra spp. result. Trichomonas vaginalis (TV), TMA NOT DETECTED NOT DETECTED [facility] Endocervical 08/08/2024 3:01 PM SINGLE STAYER OPERATOR 08/09/2024 7:47 AM SINGLE STAYER OPERATOR us Sarai Salazar NP LAB MICROBIOLOGY - GENERAL ORDER NUSRAT Final Result [facility] [id number] [address] [place] [id number] * US Transvaginal (08/01/2024 3:13 PM SINGLE STAYER OPERATOR) [place] No free fluid visualized [facility] Endometrial Thickness 6.0 mm&millim eters [facility] Anatomical Region Laterality Modality Pelvis N/A Ultrasound 08/01/2024 3:12 PM SINGLE STAYER OPERATOR Impressions 08/01/2024 9:22 PM SINGLE STAYER OPERATOR 1. Normal size heterogeneous uterus. EMC measures 6.1 mm on average which is stable and reassuring. Most ot the EMC appears to measure 5 mm of less which is normal. In the absence of bleeding, this finding can be followed. 2. The ovaries are not visualized. Narrative Procedure Note Avila Ruiz MD - 08/01/2024 IMPRESSION: 1. Normal size heterogeneous uterus. EMC measures 6.1 mm on average whichis stable and reassuring. Most ot the EMC appears to measure 5 mm of lesswhich is normal. In the absence of bleeding, this finding can befollowed. 2. The ovaries are not visualized. Sarai Salazar NP IMG US PROCEDURES Final Result * Pap and HPV, reflex to HPV Genotypes (06/06/2023 3:58 PM CDT) Clinical indication Comment [facility] - 01 Comment: NEGATIVE FOR INTRAEPITHELIAL LESION OR MALIGNANCY. FUNGAL ORGANISMS MORPHOLOGICALLY CONSISTENT WITH SONDRA SPECIES ARE PRESENT. THIS SPECIMEN WAS RESCREENED PART OF OUR [employer] ATTENDANT PROGRAM. Specimen adequacy: Comment [facility] - 01 Comment: Satisfactory for evaluation. Endocervical and/or squamous metaplastic cells (endocervical component) are present. Clinician provided ICD10 Comment [facility] - 01 Comment:Z01.419 Performed by Comment [facility] - 01 Comment:Miguelina Chen, Larry totechnologist ([facility]) QC reviewed by Comment [facility] - 01 Comment:Alayna Forrester, Felicia pervisory Environmental Manager ([facility]) . . [facility] - 01 Note: Comment [facility] - 01 Comment: The Pap smear is a screening test designed to aid in the detection of premalignant and malignant conditions of the uterine cervix. It is not a diagnostic procedure and should not be used as the sole means of detecting cervical cancer. Both false-positive and false-negative reports do occur. Test methodology Comment [facility] - 01 Comment: This liquid based ThinPrep(R) pap test was screened with the use of an image guided system. HPV Aptima Negative Negative [facility] 02 Comment: This nucleic acid amplification test detects fourteen high-risk HPV types (16,18,31,33,35,39,45,51,52,56,58,59,66,68) without differentiation. HPV Genotype Reflex Comment [facility] - 01 Comment:Criteria not met, HP V Genotype not performed. Thin prep 06/06/2023 3:58 PM CDT 06/06/2023 Narrative [facility] - 06/11/2023 12:09 PM CDT Performed at: 01 - [facility] [id number] Housekeeping/Laundry Supervisor: Lyndsey Cornejo MD, Phone: [phone] Performed at: 02 - [facility] [id number] Housekeeping/Laundry Supervisor: Lyndsey Cornejo MD, Phone: [phone] Specimen Comment: No. of containers..01 ThinPrep Vial Sarai Salazar NP LAB CYTOLOGY ORDERABLES Final Re sult [facility] - 01 [facility] 02 * Colonoscopy (02/05/2019) Anatomical Region Laterality Modality Other Historical Provider ENDOSCOPY PROCEDURES Michelle l Result from Last 3 Months or Most Recently Relevant to Health Maintenance Insurance [facility] Care Teams Laminator Hand Relationship Specialty Start Date End Date Parker Brody MD [id number] [facility] [address] [place] [address] PCP - General 11/22/21
--- OUTSIDE RECORDS SUMMARY | 2024-10-31 00:09 | XMS_ITS | Referral Summary ---
Author Organization [facility] [address] [facility] Address [address] [place] [address] Care Team Providers Care Certified Endoscopy Technician Name Role Phone Parker Brody MD Primary Care Provider Encounters Date Type Department Care Team Description 10/08/2024 11:57 AM SLOT SERVICE SPECIALIST - 10/08/2024 11:59 PM SLOT SERVICE SPECIALIST Hospital Encounter [facility] [address] [place] [address] Encounter for screening mammogram for malignant neoplasm of breast Discharge Disposition: Discharge to home or self care 10/08/2024 11:57 AM SLOT SERVICE SPECIALIST - 10/08/2024 11:59 PM SLOT SERVICE SPECIALIST Hospital Encounter [facility] [address] [place] [address] Screening for osteoporosis Discharge Disposition: Discharge to home or self care 08/11/2024 Telephone [facility] [address] [place] [address] [place] [phone] Rin Jaeger MA Test Results 08/08/2024 2:15 PM SLOT SERVICE SPECIALIST Office Visit [facility] [address] [place] [address] [address], [place] [phone] Sarai Salazar NP Well woman exam (Primary Dx); Encounter for screening mammogram for malignant neoplasm of breast; Hormone replacement therapy (HRT); Chronic vulvitis; Vaginal discharge; Decreased libido; Screening for osteoporosis 08/01/2024 3:00 PM SLOT SERVICE SPECIALIST Ancillary Procedure [facility] [address] [place] [address] [address] [place] [phone] Endometrial thickening on ultrasound from Last 3 Months Allergies Active Allergy Reactions Criticality Noted Date Comments Amoxicillin Clarithromycin Other (See comments) Low 05/23/2022 Doxycycline Other (See comments) Low 05/23/2022 Levofloxacin Rash Medium 02/19/2020 Penicillins Hives Medium Sulfa (Sulfonamide Antibiotics) Hives Medium 04/26 Sulfamethoxazole-Trimethoprim Hives Medium 2019 Medications atorvastatin (LIPITOR) 20 mg tablet Active vit D3-vit A-rgcaiyjmk-rdcw [id number] nxkl-ekq-yt-mg tablet Take by mouth Active LORazepam (ATIVAN) [...] testosterone micronized, bulk, 100 % powder 2 Active albuterol HFA (PROVENTIL HFA,VENTOLIN HFA,PROAIR HFA) [...] DOSEPACK) 4 mg Dosepack FOLLOW PACKAGE DIRECTIONS 08/01/2 022 Active HYDROcodone-chlor pheniramine ER (TUSSIONEX PENNKINETIC) [...] 05/18/2021 Assessment & Plan (09/01/2024 7:20 AM SLOT SERVICE SPECIALIST): Risks and benefits of hormone replacement (HRT) [...] HRT. Refill on oral HRT sent to [facility]. The testosterone cream will be refilled at [facility]. Order to have testosterone level checked given and patient plans to have labs drawn at [facility]. Assessment & Plan (05/18/2021 4:50 PM CDT): [...] Joint pain Hyperlipidemia 02/07/2014 Overview (12/30/2016): Hyperlipidemia Immunizations Name Administration Dates Next Due Influenza, Quadrivalent, Spl it, Preservative Free, Intramuscular 07/24/2019 Influenza, Unspecified 09/24/2018(Deferr ed: Patient Refused),09/24/2017(Deferred: Patient Refused) Social History Tobacco Use Types Packs/Day Years [...] on file Legal Sex Female 2:28 AM SLOT SERVICE SPECIALIST Gender Identity Female 05/11/2020 9:19 PM CDT Sexual Orientation Straight 05/11/2020 9: 19 PM CDT Last Filed Vital Signs Vital Sign Reading Time Taken Comments Blood Pressure 180/80 08/08/2024 2:07 PM SLOT SERVICE SPECIALIST Pulse 90 08/14/2020 3:15 PM SLOT SERVICE SPECIALIST Temperature 37.1 C (98.7 F) 08/14/2020 3:15 PM SLOT SERVICE SPECIALIST Respiratory Rate 20 08/14/2020 3:15 PM SLOT SERVICE SPECIALIST Oxygen Saturation 98% 08/14/2020 3:15 PM SLOT SERVICE SPECIALIST Inhaled Oxygen Concentration - - Weight 71.7 kg (158 lb) 08/08/2024 2:07 PM SLOT SERVICE SPECIALIST Height 167.6 cm (5' 6 ) 10/08/2024 12:18 PM SLOT SERVICE SPECIALIST Body Mass Index 24.75 06/06/2023 3:17 PM CDT Plan of Treatment Not on file Procedures Procedure Name Priority Date/Time Associated Diagnosis Comments SCREENING MAMMOGRAM BILATERAL W JATINDER Schedule Routine, Read Routine (OP Routine) 10/08/2024 12:27 PM SLOT SERVICE SPECIALIST Encounter for screening mammogram for malignant neoplasm of breast DEXA AXIAL SKELETON BONE DENSITY 1 OR MORE SITES Schedule Routine, Read Routine (OP Routine) 10/08/2024 12:11 PM SLOT SERVICE SPECIALIST Screening for osteoporosis SURESWAB ADVANCED VAGINITIS, TMA Routine 08/08/2024 3:01 PM SLOT SERVICE SPECIALIST Vaginal discharge US TRANSVAGINAL Schedule Routine, Read Routine (OP Routine) 08/01/2024 3:13 PM SLOT SERVICE SPECIALIST Endometrial thickening on ultrasound PAP AND HPV, REFLEX TO HPV GENOTYPES Routine 06/06/2023 3:58 PM CDT Well woman exam COLONOSCOPY Routine 02/05/2019 from Last 3 Months or Most Recently Relevant to Health Maintenance Results * Screening Mammogram Bilateral W Jatinder (10/08/2024 12:27 PM SLOT SERVICE SPECIALIST) Anatomical Region Laterality Modality Breast Bilateral Mammography 10/08/2024 12:3 1 PM SLOT SERVICE SPECIALIST Impressions 10/08/2024 12:31 PM SLOT SERVICE SPECIALIST No evidence of malignancy in either breast. FINAL ASSESSMENT: BI-RADS Category 2: Benign. RECOMMENDATION: Recommend return for annual screening mammogram in 12 months. Electronically signed by: Moe Jose M.D. Narrative 10/08/2024 12:31 PM SLOT SERVICE SPECIALIST EXAMINATION: BILATERAL SCREENING MAMMOGRAM COMPARISON: All prior [...] in either breast on mammogram. 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 [facility] causes of low bone mineral density may [...] Sang Dumont M.D. MF: KANDICE Report ID: [id number] Reading Location: [place] [address] Sarai Salazar NP IMG DXA PROCEDURES Final Result * (ABNORMAL) [facility] Advanced Vaginitis, TMA Endocervical (08/08/2024 3:01 PM SLOT SERVICE SPECIALIST) Pathologist [facility] ADV Bacterial vaginosis (BV), TMA NEGATIVE NEGATIVE [facility] Sondra species DETECTED(A) NOT DETECTED [facility] Sondra glabrata NOT DETECTED NOT DETECTED [facility] Comment: Sondra species C. albicans, C. tropicalis, C. parapsilosis, and/or C. dubliniensis can be detected, but not differentiated, in the Sondra spp. result. Trichomonas vaginalis (TV), TMA NOT DETECTED NOT DETECTED [facility] Endocervical 08/08/2024 3:01 PM SLOT SERVICE SPECIALIST 08/09/2024 7:47 AM SLOT SERVICE SPECIALIST Sarai Salazar NP LAB MICROBIOLOGY - GENERAL ORDER NUSRAT Final Result [facility] [address] [place] [address] * US Transvaginal (08/01/2024 3:13 PM SLOT SERVICE SPECIALIST) Cul de Sac No free fluid visualized [facility] Endometrial Thickness 6.0 mm&millim eters [facility] Anatomical Region Laterality Modality Pelvis N/A Ultrasound 08/01/2024 3:12 PM SLOT SERVICE SPECIALIST Impressions 08/01/2024 9:22 PM SLOT SERVICE SPECIALIST 1. Normal size heterogeneous uterus. EMC measures [...] ovaries are not visualized. Sarai Salazar NP IM US PROCEDURES Final Result * Pap and HPV, reflex to HPV Genotypes (06/06/2023 3:58 PM CDT) Clinical indication Comment [facility] - 01 Comment: NEGATIVE FOR INTRAEPITHELIAL LESION OR MALIGNANCY. FUNGAL ORGANISMS MORPHOLOGICALLY CONSISTENT WITH SONDRA SPECIES ARE PRESENT. THIS SPECIMEN WAS RESCREENED PART OF OUR PROPERTY MANAGEMENT SPECIALIST PROGRAM. Specimen adequacy: Comment [facility] - 01 Comment: Satisfactory for evaluation. Endocervical and/or squamous metaplastic cells (endocervical component) are present. Clinician provided ICD10 Comment [facility] - 01 Comment:Z01.419 Performed by Comment [facility] - 01 Comment:Larry Monroy totechnologist ([facility]) QC reviewed by Comment [facility] - 01 Comment:Felicia Reynaga pervisory Client Service And Consulting Manager (ASC) . . [facility] - 01 Note: Comment [...] - 06/11/2023 12:09 PM CDT Performed at: - [address] [id number] Data Base Design Analyst: Lyndsey Cornejo MD, Phone: [phone] Performed at: 02 - [facility] [id number] Data Base Design Analyst: Lyndsey Cornejo MD, Phone: [phone] Specimen Comment: No. of containers..01 ThinPrep Vial Sarai Salazar NP LAB CYTOLOGY ORDERABLES Final Re [facility] - 01 LAB UZAIR 02 * Colonoscopy (02/05/2019) Anatomical Region Laterality Modality Other Historical Provider ENDOSCOPY PROCEDURES Michelle l Result from Last 3 Months or Most Recently Relevant to Health Maintenance Insurance [facility] Care Teams Certified Endoscopy Technician Relationship Specialty Start Date End Date Parker Brody MD [address] [facility] [address] [place] [address] PCP - General 11/22/21
[2024-10-31 09:42] VITALS: BP 166/77; PULSE 91; RESP 20; TEMP 36.4; O2SAT 100; BMI 24.4
[2024-10-31] MEDS: LACTATED RINGERS 1,000 ML 150 ML IV CONT (10:00)
--- NOTE | 2024-10-31 10:34 | WPDANESEPPF ---
Anes - Initial Pre Proc Eval Procedure: Operation Date: 10/31/24 10:30 Proposed Procedures p Colonoscopy - Salvatore Brown MD Date/Time: 10/31/24 10:34 Surgeon: Salvatore Brown MD Pre Op Diagnosis: history of colon polyps Patient Data Age: 64 Gender: F Height: 1.7 m Weight: 70.7 kg Last Vital Signs Temp 36.4 C 10/31/24 09:42 Pulse 91 10/31/24 09:42 Resp 20 10/31/24 09:42 BP 166/77 H 10/31/24 09:42 Pulse Ox 100 10/31/24 09:42 O2 Del Method Room Air 10/31/24 09:42 Allergies Allergy/AdvReac Type Severity Reaction Status Date / Time amoxicillin Allergy Intermediate Rash Verified 10/31/24 09:49 levofloxacin Allergy Intermediate Rash Verified 10/31/24 09:49 Penicillins AdvReac Intermediate Nausea and Verified 10/31/24 09:49 Vomiting Sulfa (Sulfonamide AdvReac Hives Verified 10/31/24 09:49 Antibiotics) Home Medications ?Medication ?Instructions ?Recorded ?Confirmed ?Type albuterol sulfate 90 mcg/actuation 2 inh inhalation Q6H PRN shortness 05/23/23 10/31/24 History breath activated powder inhaler of breath atorvastatin 20 mg tablet 20 mg PO DAILY 05/23/23 10/31/24 History cholecalciferol (vitamin D3) 50 50 mcg PO DAILY 05/23/23 10/31/24 History mcg (2,000 unit) capsule estradiol-norethindrone acet 1 1 tablet PO DAILY 05/23/23 10/31/24 History mg-0.5 mg tablet lorazepam 0.5 mg tablet 0.5 mg PO BID PRN Anxiety 05/23/23 10/31/24 History lisinopril 20 mg tablet 40 mg PO DAILY 03/21/24 10/31/24 History Adult Probiotic See Rx Instructions .Route .COMPLEX 08/04/24 10/31/24 History Patient hx anesthesia problems: none Family hx anesthesia problems: none Results Review: All pre-operative results and documents have been reviewed as part of the pre-operative evaluation. [facility] Past Medical History Medical History Cancer Family History Family History Mother Hypertension Sibling Hypertension Anxiety Sibling Hypertension Anxiety Other Anxiety Social History Social History Smoking status: Never smoker Alcohol intake: never Substance use: never Lack of Transportation: No Lack of Food: Never True Current Housing: I Have Housing Concerned About Future Housing: No Difficulty Paying Gas/Electric Bills: No Difficulty Paying for Meds: No Currently Unemployed: No Education: High School Diploma/GED Difficulty w/ Childcare or Family Care: No Living arrangements: with family Spiritual care concerns: No Anes - Eval Final PreProcedure Day of Procedure 10/31/24 10:34 Patient weight: normal Heart: regular rate and rhythm Lungs: clear to auscultation Airway: Mallampati scale class II Neurological: alert and oriented Last oral intake: >/= 8 hours ASA classification: III Emergent: no Anesthetic plan: proceed Anesthesia type and monitoring: general GIVS and standard monitoring Results Review: All pre-operative results and documents have been reviewed as part of the pre-operative evaluation. Informed Consent: The patient's anesthetic plan and its attendant risks and benefits were discussed with the patient/family/POA. Questions were solicited and answers provided to the satisfaction of the patient/family/POA.
--- NOTE | 2024-10-31 10:52 | PM.IMHP ---
H&P: HPI History of Present Illness Date/Time: 10/31/24 10:52 Chief Complaint: Screening colonoscopy Narrative: This is the patient's first colonoscopy after more than 10 years.. There are no GI symptoms and there is no family history of colorectal cancer. Review of Systems Review of Systems: All systems reviewed & are unremarkable except as noted in HPI and below PMFSH Past Medical History Medical History Cancer Family History Family History Mother Hypertension Sibling Hypertension Anxiety Sibling Hypertension Anxiety Other Anxiety Social History Social History Smoking status: Never smoker Alcohol intake: never Substance use: never Lack of Transportation: No Lack of Food: Never True Current Housing: I Have Housing Concerned About Future Housing: No Difficulty Paying Gas/Electric Bills: No Difficulty Paying for Meds: No Currently Unemployed: No Education: High School Diploma/GED Difficulty w/ Childcare or Family Care: No Living arrangements: with family Spiritual care concerns: No Meds Home Medications and Allergies Home Medications ?Medication ?Instructions ?Recorded ?Confirmed ?Type albuterol sulfate 90 mcg/actuation 2 inh inhalation Q6H PRN shortness 05/23/23 10/31/24 History breath activated powder inhaler of breath atorvastatin 20 mg tablet 20 mg PO DAILY 05/23/23 10/31/24 History cholecalciferol (vitamin D3) 50 50 mcg PO DAILY 05/23/23 10/31/24 History mcg (2,000 unit) capsule estradiol-norethindrone acet 1 1 tablet PO DAILY 05/23/23 10/31/24 History mg-0.5 mg tablet lorazepam 0.5 mg tablet 0.5 mg PO BID PRN Anxiety 05/23/23 10/31/24 History lisinopril 20 mg tablet 40 mg PO DAILY 03/21/24 10/31/24 History Adult Probiotic See Rx Instructions .Route .COMPLEX 08/04/24 10/31/24 History Allergies Allergy/AdvReac Type Severity Reaction Status Date / Time amoxicillin Allergy Intermediate Rash Verified 10/31/24 09:49 levofloxacin Allergy Intermediate Rash Verified 10/31/24 09:49 Penicillins AdvReac Intermediate Nausea and Verified 10/31/24 09:49 Vomiting Sulfa (Sulfonamide AdvReac Hives Verified 10/31/24 09:49 Antibiotics) Vital Signs Vital Signs - 24 hr 10/31/24 09:42 Temperature 97.6 F Pulse Rate 91 Respiratory Rate 20 Blood Pressure 166/77 H Pulse Oximetry 100 Oxygen Delivery Room Air Exam Const: General: cooperative and healthy appearing Resp: Effort & Inspection: normal respiratory effort and able to speak in complete sentences Auscultation: clear to auscultation bilaterally Cardio: Rate: regular rate Rhythm: regular rhythm GI: Inspection: normal to inspection GI Palp: No No hepatosplenomegaly present Auscultation: normal bowel sounds Rectal Exam: deferred Skin: General skin exam: normal color Psych: Appearance: grossly normal Mental Status: mental status grossly normal Assessment and Plan Assessment and plan (1) Encounter for screening colonoscopy: Code(s): Z12.11 - Encounter for screening for malignant neoplasm of colon Status: Acute Assessment and Plan: The patient is deemed a good candidate for the procedure. Consent signed. Will proceed.
[2024-10-31] MEDS: SIMETHICONE ORAL SUSPENSION 20 MG/0.3 ML 30 ML BOTTLE 0.6 ML IRRIGATION (11:05)
[2024-10-31 11:19] VITALS: BP 140/76; PULSE 73; RESP 20; O2SAT 100
[2024-10-31 11:29] VITALS: BP 149/77; PULSE 66; RESP 20; O2SAT 100
[2024-10-31 11:39] VITALS: BP 156/90; PULSE 74; RESP 19; O2SAT 100
== END 2024-10-31 11:52 | disposition home or self-care (01) ==
PROVIDERS: PCP Internal Medicine; Referring Provider Internal Medicine; Visit Provider Internal Medicine Gastroenterology
PROC: 0DJD8ZZ Inspection of Lower Intestinal Tract, Via Natural or Artificial Opening Endoscopic (ICD-10-PCS; CPT 45378; principal; 2024-10-31 10:30)
DX: Z12.11 Encounter for screening for malignant neoplasm of colon (principal); D12.0 Benign neoplasm of cecum
CPT/HCPCS: 45385; 88305; J2003; J2704; J7120

== ENCOUNTER 2025-04-24 13:22 | Outpatient (CLI) | payer OTHER, SELFPAY ==
--- OUTSIDE RECORDS SUMMARY | 2025-04-24 13:26 | XMS_ITS | Clinical Summary ---
Author Organization [facility] [address] [facility] Address [address] [place] [address] Care Team Providers Care Front Desk Team Member Name Role Phone Parker Brody MD Primary Care Provider Allergies Active Allergy Reactions Criticality Noted Date Comments Amoxicillin Clarithromycin Other (See comments) Low 05/23/2022 Doxycycline Other (See comments) Low 05/23/2022 Levofloxacin Rash Medium 02/19/2020 Penicillins Hives Medium Sulfa (Sulfonamide Antibiotics) Hives Medium / Sulfamethoxazole-Trimethoprim Hives Medium 2019 Medications atorvastatin (LIPITOR) 20 mg tablet 12/25/19 20 Active vit D3-vit U-fszmrfckq-osdk [id number] fllr-nss-dk-mg tablet Take by mouth Active LORazepam (ATIVAN) 0.5 mg tablet Take 1 tablet (0.5 mg total) by mouth 2 (two) times a day as needed for anxiety 20 tablet 2 02/19/20 20 Active naproxen (NAPROSYN) 375 mg tablet naproxen 375 mg tablet ONE TWICE A DAY Active testosterone micronized, bulk, 100 % powder 2 03/30/20 22 Active albuterol HFA (PROVENTIL HFA,VENTOLIN HFA,PROAIR HFA) [...] four times daily PRN for itching Active methylPREDNISolone (MEDROL DOSEPACK) 4 mg Dosepack FOLLOW PACKAGE DIRECTIONS 04/24/20 22 Active HYDROcodone-chlorp heniramine ER (TUSSIONEX PENNKINETIC) 2-1.6 mg/mL ER suspension hydrocodone 10 mg-chlorpheniram ine 8 mg/5 mL oral susp extend.rel 12hr Active cream base no.9, bulk, cream 1 mL daily Apply 1 ml of testosterone cream daily to forearm 30 g 5 10/19/19 24 Active ipratropium (ATROVENT) 21 mcg (0.03 %) nasal spray INSTILL TWO SPRAYS IN EACH NOSTRIL EVERY DAY TO THREE TIMES DAILY Active omeprazole (PriLOSEC) 20 mg capsule TAKE 1 CAPSULE BY MOUTH DAILY AROUND SUPPER TIME 07/07/20 24 Active ondansetron ODT (ZOFRAN-ODT) [address] 1 tablet twice a day by translingual route as needed. 06/08/20 23 Active lisinopriL (PRINIVIL,ZESTRIL) 40 mg tablet 05/13/20 24 Active ondansetron (ZOFRAN) 4 mg tablet TAKE 2 TABLETS BY MOUTH TWICE DAILY NEEDED Active triamcinolone (KENALOG) 0.1 % creamIndications:S kin Inflammation Apply topically 2 (two) times a day 60 g 1 08/13/20 24 Active estradiol-norethin drone (ACTIVELLA) 1-0.5 mg per tablet TAKE 1 TABLET DAILY 84 tablet 3 10/14/19 25 Active cream base no.56, bulk, cream TESTOSTERONE 0.2% CREAM. APPLY 4 CLICKS TOPICALLY TO THIN SKIN (HAIRLESS PARTS OF INNER WRISTS, ARMS, OR THIGHS) SKIN DIRECTED ONCE DAILY 30 g 5 11/25/19 25 Active Active Problems Problem Noted Date Diagnosed Date [...] 05/18/2021 Assessment & Plan (09/01/2024 7:20 AM BROWNFIELD REDEVELOPMENT SITE MANAGER): Risks and benefits of hormone replacement (HRT) [...] The testosterone cream will be refilled at [place] [facility]. Order to have testosterone level checked given and patient plans to have labs drawn at [facility]. Assessment & Plan (05/18/2021 4:50 PM CDT): [...] pain Hyperlipidemia 02/07/2014 Overview (12/30/2016): Hyperlipidemia Immunizations Immunization Administration Dates Next Due Influenza, Quadrivalent, Spl [...] on file Legal Sex Female 2:28 AM BROWNFIELD REDEVELOPMENT SITE MANAGER Gender Identity Female 05/11/2020 9:19 PM CDT [...] Comments Blood Pressure 180/80 08/08/2024 2:07 PM BROWNFIELD REDEVELOPMENT SITE MANAGER Pulse 90 08/14/2020 3:15 PM BROWNFIELD REDEVELOPMENT SITE MANAGER Temperature 37.1 C (98.7 F) 08/14/2020 3:15 PM BROWNFIELD REDEVELOPMENT SITE MANAGER Respiratory Rate 20 08/14/2020 3:15 PM BROWNFIELD REDEVELOPMENT SITE MANAGER Oxygen Saturation 98% 08/14/2020 3:15 PM BROWNFIELD REDEVELOPMENT SITE MANAGER Inhaled Oxygen Concentration - - Weight 71.7 kg (158 lb) 08/08/2024 2:07 PM BROWNFIELD REDEVELOPMENT SITE MANAGER Height 167.6 cm (5' 6) 10/08/2024 12:18 PM BROWNFIELD REDEVELOPMENT SITE MANAGER Body Mass Index 24.75 06/06/2023 3:17 PM CDT Plan of Treatment Health Maintenance Due Date Last Done Comments Hepatitis C Screening 1962 Hepatitis B Screening 1980 Zoster Vaccine (1 of 2) 2012 Colon Cancer Screening-Colonoscopy 02/06/2024 02/05/2019 Cervical Cancer Screening 06/06/2024 06/06/2023, DTaP/Tdap/Td Vaccine (2 - Td or Tdap) 08/05/2024 08/05/2014 Influenza Vaccine (#1) 2025 4, 06/30/2022, 07/03/2021, Additional history exists Depression Screening 08/08/2025 08/08/2024, 05/23/2022, 05/18/2021, Additional history exists Regular Well Visit/Exam 18-64 08/08/2025 08/08/2024, 06/06/2023, 05/23/2022, Additional history exists Breast Cancer Screening-Mammogram 10/08/2025 10/08/2024, 07/25/2023, 06/22/2022, Additional history exists Colon Cancer Screening-CT Colonography Discontinued 02/05/2019 Colon Cancer Screening-DNA Stool Discontinued 02/05/2019 Colon Cancer Screening-FIT Discontinued 02/05/2019 Colon Cancer Screening-Sigmoidoscopy Discontinued 02/05/2019 Pneumococcal vaccine <65 Aged Out No longer eligible based on patient's age to complete this topic Procedures Procedure Name Priority Date/Time Associated Diagnosis Comments TESTOSTERONE, TOTAL AND FREE, SERUM Routine 04/15/2025 9:33 AM CDT Decreased libido SCREENING MAMMOGRAM BILATERAL W JATINDER Schedule Routine, Read Routine (OP Routine) 10/08/2024 12:27 PM BROWNFIELD REDEVELOPMENT SITE MANAGER Encounter for screening mammogram for malignant neoplasm of breast PAP AND HPV, REFLEX TO HPV GENOTYPES Routine 06/06/2023 3:58 PM CDT Well woman exam COLONOSCOPY Routine 02/05/2019 from Last 3 Months or Most Recently Relevant to Health Maintenance Results * Testosterone, Total and Free, Serum (04/15/2025 9:33 AM CDT) Testosterone 38 2 - 45 ng/dL [facility] Comment: For additional information, please refer to https://education.[employer].OnVantage/faq/VMF311 (This link is being provided for informational/educational purposes only.) (Note) This test was developed and its analytical performance characteristics have been determined by [facility]. It has not been cleared or approved by the FDA. This assay has been validated pursuant to the CLIA regulations and is used for clinical purposes. Testosterone, free 3.9 0.1 - 6.4 pg/mL [facility] Comment: (Note) This test was developed and its analytical performance characteristics have been determined by [facility]. It has not been cleared or approved by the FDA. This assay has been validated pursuant to the CLIA regulations and is used for clinical purposes. [facility] [address] [address],[address] [facility] [address] Lula Franco MD, PhD Sex hormone binding globulin 50 14 - 73 nmol/L [facility] Blood 04/15/2025 9:33 AM CDT 04/15/2025 9:34 AM CDT Narrative [facility] - 04/20/2025 3:49 PM CDT FASTING:YES FASTING: YES us Sarai Salazar NP LAB BLOOD ORDERABLES Final Resul t [facility] [address] [address], [address] [place] [address] * Screening Mammogram Bilateral W Jatinder (10/08/2024 12:27 PM BROWNFIELD REDEVELOPMENT SITE MANAGER) Anatomical Region Laterality Modality Breast Bilateral Mammography 10/08/2024 12:3 1 PM BROWNFIELD REDEVELOPMENT SITE MANAGER Impressions 10/08/2024 12:31 PM BROWNFIELD REDEVELOPMENT SITE MANAGER No evidence of malignancy in either breast. FINAL ASSESSMENT: BI-RADS Category 2: Benign. RECOMMENDATION: Recommend return for annual screening mammogram in 12 months. Electronically signed by: Moe Jose M.D. Narrative 10/08/2024 12:31 PM BROWNFIELD REDEVELOPMENT SITE MANAGER EXAMINATION: BILATERAL SCREENING MAMMOGRAM COMPARISON: All prior [...] IMG MAMMO PROCEDURES Final Resul t * Pap and HPV, reflex to HPV Genotypes (06/06/2023 3:58 PM CDT) Clinical indication Comment [facility] - 01 Comment: NEGATIVE FOR INTRAEPITHELIAL LESION OR MALIGNANCY. FUNGAL ORGANISMS MORPHOLOGICALLY CONSISTENT WITH KRISTINE SPECIES ARE PRESENT. THIS SPECIMEN WAS RESCREENED PART OF OUR REMOTELY OPERATED VEHICLE PROGRAM. Specimen adequacy: Comment [facility] - 01 Comment: Satisfactory for evaluation. Endocervical and/or squamous metaplastic cells (endocervical component) are present. Clinician provided ICD10 Comment [facility] - 01 Comment:Z01.419 Performed by Comment [facility] - 01 Comment:Miguelina Chen, Larry totechnologist (ASCP) QC reviewed by Comment [facility] - 01 Comment:Alayna Forrester, Felicia [facility] Immigration Inspector ([facility]) . . [facility] - 01 Note: Comment [...] 06/11/2023 12:09 PM CDT Performed at: - [address] [id number] Ignition Mechanic: Lyndsey Cornejo MD, Phone: [phone] Performed at: 02 - [address] [id number] Ignition Mechanic: Lyndsey Cornejo MD, Phone: [phone] Specimen Comment: No. of containers..01 ThinPrep Vial Sarai Salazar PROTEOMICS SCIENTIST LAB CYTOLOGY ORDERABLES Final Re sult [facility] 02 * Colonoscopy (02/05/2019) Anatomical Region Laterality Modality Other us Historical Provider ENDOSCOPY PROCEDURES Michelle ramos Result from Last 3 Months or Most Recently Relevant to Health Maintenance Insurance [facility] Care Teams Front Desk Team Member Relationship Specialty Start Date End Date Parker Brody MD [address] [facility] [address] [place] [address] PCP - General 11/22/21
--- OUTSIDE RECORDS SUMMARY | 2025-04-24 13:26 | XMS_ITS | Referral Summary ---
Author Organization [facility] 163 [facility] Address [address] [place] [address] Care Team Providers Care Efficiency Manager Name Role Phone Parker Brody MD Primary Care Provider Allergies Active Allergy Reactions Criticality Noted Date Comments Amoxicillin Clarithromycin Other (See comments) Low 05/23/2022 Doxycycline Other (See comments) Low 05/23/2022 Levofloxacin Rash Medium 02/19/2020 Penicillins Hives Medium Sulfa (Sulfonamide Antibiotics) Hives Medium 04/26 Sulfamethoxazole-Trimethoprim Hives Medium 2019 Medications atorvastatin (LIPITOR) 20 mg tablet 12/25/19 20 Active vit D3-vit H-upcmkzigo-ejnc [id number] meoi-yny-yh-mg tablet Take by mouth Active LORazepam (ATIVAN) [...] 05/18/2021 Assessment & Plan (09/01/2024 7:20 AM CLASSROOM COORDINATOR): Risks and benefits of hormone replacement (HRT) [...] The testosterone cream will be refilled at [place] [facility]. Order to have testosterone level checked given and patient plans to have labs drawn at [facility]. Assessment & Plan (05/18/2021 4:50 PM [...] on file Legal Sex Female 2:28 AM CLASSROOM COORDINATOR Gender Identity Female 05/11/2020 9:19 PM CDT Sexual Orientation Straight 05/11/2020 9: 19 PM CDT Last Filed Vital Signs Vital Sign Reading Time Taken Comments Blood Pressure 180/80 08/08/2024 2:07 PM CLASSROOM COORDINATOR Pulse 90 08/14/2020 3:15 PM CLASSROOM COORDINATOR Temperature 37.1 C (98.7 F) 08/14/2020 3:15 PM CLASSROOM COORDINATOR Respiratory Rate 20 08/14/2020 3:15 PM CLASSROOM COORDINATOR Oxygen Saturation 98% 08/14/2020 3:15 PM CLASSROOM COORDINATOR Inhaled Oxygen Concentration - - Weight 71.7 kg (158 lb) 08/08/2024 2:07 PM CLASSROOM COORDINATOR Height 167.6 cm (5' 6) 10/08/2024 12:18 PM CLASSROOM COORDINATOR Body Mass Index 24.75 06/06/2023 3:17 PM CDT Plan of Treatment Not on file Procedures Procedure Name Priority Date/Time Associated Diagnosis Comments TESTOSTERONE, TOTAL AND FREE, SERUM Routine 04/15/2025 9:33 AM CDT Decreased libido SCREENING MAMMOGRAM BILATERAL W JATINDER Schedule Routine, Read Routine (OP Routine) 10/08/2024 12:27 PM CLASSROOM COORDINATOR Encounter for screening mammogram for malignant neoplasm of breast PAP AND HPV, REFLEX TO HPV GENOTYPES Routine 06/06/2023 3:58 PM CDT Well woman exam COLONOSCOPY Routine 02/05/2019 from Last 3 Months or Most Recently Relevant to Health Maintenance Results * Testosterone, Total and Free, Serum (04/15/2025 9:33 AM CDT) Testosterone 38 2 - 45 ng/dL [email or web address] Comment: For additional information, please refer to https://education.[employer].InstaJob/faq/OZW004 (This link is being provided for informational/educational purposes only.) (Note) This test was developed and its analytical performance characteristics have been determined by [email or web address]. It has not been cleared or approved by the FDA. This assay has been validated pursuant to the CLIA regulations and is used for clinical purposes. Testosterone, free 3.9 0.1 - 6.4 pg/mL [facility] Comment: (Note) This test was developed and its analytical performance characteristics have been determined by [email or web address]. It has not been cleared or approved by the FDA. This assay has been validated pursuant to the CLIA regulations and is used for clinical purposes. [facility] [address] [facility] [address] Lula Franco MD, PhD Sex hormone binding globulin 50 14 - 73 nmol/L [facility] Blood 04/15/2025 9:33 AM CDT 04/15/2025 9:34 AM CDT Narrative [facility] - 04/20/2025 3:49 PM CDT FASTING:YES FASTING: YES Sarai Salazar NP LAB BLOOD ORDERABLES Final Resul t [facility] [address] [facility] [address], [address] [place] [address] * Screening Mammogram Bilateral W Jatinder (10/08/2024 12:27 PM CLASSROOM COORDINATOR) Anatomical Region Laterality Modality Breast Bilateral Mammography 10/08/2024 12:3 1 PM CLASSROOM COORDINATOR Impressions 10/08/2024 12:31 PM CLASSROOM COORDINATOR No evidence of malignancy in either breast. FINAL ASSESSMENT: BI-RADS Category 2: Benign. RECOMMENDATION: Recommend return for annual screening mammogram in 12 months. Electronically signed by: Moe Jose M.D. Narrative 10/08/2024 12:31 PM CLASSROOM COORDINATOR EXAMINATION: BILATERAL SCREENING MAMMOGRAM COMPARISON: All prior [...] THIS SPECIMEN WAS RESCREENED PART OF OUR FOREIGN [employer] SPECIALTY PROGRAM. Specimen adequacy: Comment [facility] - 01 Comment: Satisfactory for evaluation. Endocervical and/or squamous metaplastic cells (endocervical component) are present. Clinician provided ICD10 Comment [facility] - 01 Comment:Z01.419 Performed by Comment [facility] - 01 Comment:Miguelina Chen, Larry totechnologist (ASCP) QC reviewed by Comment [facility] - 01 Comment:Felicia Reynaga pervisory Band Aid Machine Operator (ASC) . . [facility] - 01 Note: [...] system. HPV Aptima Negative Negative [facility] Comment: This nucleic acid amplification test detects fourteen high-risk HPV types (16,18,31,33,35,39,45,51,52,56,58,59,66,68) without differentiation. HPV Genotype Reflex Comment [facility] - 01 Comment:Criteria not met, HP V Genotype not performed. Thin prep 06/06/2023 3:58 PM CDT 06/06/2023 Narrative [facility] - 06/11/2023 12:09 PM CDT Performed at: 01 - [facility] [id number] Personal Financial Advisor: Lyndsey Cornejo MD, Phone: [phone] Performed at: 02 - [facility] [id number] Personal Financial Advisor: Lyndsey Cornejo MD, Phone: [phone] Specimen Comment: No. of containers..01 ThinPrep Vial Sarai Salazar NP LAB CYTOLOGY ORDERABLES Final Re sult [facility] - 01 [facility] 02 * Colonoscopy (02/05/2019) Anatomical Region Laterality Modality Other us Historical Provider ENDOSCOPY PROCEDURES Michelle ramos Result from Last 3 Months or Most Recently Relevant to Health Maintenance Insurance [facility] Care Teams Efficiency Manager Relationship Specialty Start Date End Date Parker Brody MD [address] [place] [address] PCP - General 11/22/21
--- OUTSIDE RECORDS SUMMARY | 2025-04-24 13:26 | XMS_ITS | Continuity of Care Document ---
Author Organization [facility] Address [address] [place] [address] Phone Care Team Providers Care Vender Name Role Phone Akil Nichols OD Unavailable [...] times every day 0.5 MG - Active [place] Thyroid 30 mg tablet - Active bupropion [...] Provider Providers Copied on Encounter [facility], [address], [place], [id number], tel:[phone] [facility]- routine exam (chief complaint) Presbyopia Simone Barnard. [address], [address], [place], [place], [id number]. tel:[phone] Family History Family Member Type Diagnosis Age At Onset Problem (finding) Family history of Diabetes mellitus (Cause Of ) Problem (finding) Family history of catar act Problem (finding) Family history of Thyro id disorder Problem (finding) Family history of Arthr itis Problem (finding) Family history of strok e Problem (finding) Family history of hyper tension Payers Payer name Insurance type Covered green party ID Authorvicky dooley(s) [facility] [id number] Social History Type Description Quantity Date Captured [...] - Change in RX. Related to Presbyopia Follow up - Return i n 1 year with Akil Nichols, OD for full exam. Related to Presbyopia Assessments Type Assessment Date assessment Presbyopia impression Presbyopia: H52.4. Patient Care Teams Name Effective Dates (start - stop) Status Members No Information
[2025-04-24 15:41] LABS: NT Pro B Type Natriuretic Pept 84 pg/mL (19.9-100)
[2025-04-27 13:08] LABS: IgG, Subclass 1 561 mg/dL (248-810); IgG, Subclass 2 326 mg/dL (130-555); IgG, Subclass 3 38 mg/dL (15-102); IgG, Subclass 4 4 mg/dL (2-96); Immunoglobulin G, Qn 922 mg/dL (586-1602)
--- NOTE | 2025-05-13 14:58 | WPDPFTINT ---
PFT Procedure Performed PFT Procedure Performed Spirometry with Pre/Post Bronchodilator Plethysmography (Lung Vol) Diffusing Cap (DLCO) Flow Vol Loop PFT Interpretation This is a pulmonary function test with pre and post-bronchodilator spirometry, plethysmography and diffusing capacity. The test was performed and results interpreted in accordance with the 2019 and 2005 ATS/ERS Task Force guidelines respectively using the Global Lung Function Initiative-2012 reference equations. Patient demonstrated good effort and cooperation. Reproducibility criteria were met. The quality of the pre bronchodilator spirometry maneuver was Grade A and post bronchodilator spirometry maneuver was Grade A. Findings: Spirometry: The contour the inspiratory and expiratory flow tracing are normal. The pre bronchodilator FVC is 2.67 L, 78% predicted. The pre bronchodilator FEV1 is 2.16 L, 81% predicted. The pre bronchodilator FEV1: FVC ratio is 81%. The post bronchodilator FVC is 2.48 L, representing a 7% decrease. The post bronchodilator FEV1 is 2.15 L, representing 1% decrease. The post bronchodilator FEV1: FVC ratio is 87%. Plethysmography: The total lung capacity is 4.30 L, 78% predicted. The functional residual capacity is 2.14 L, 68% predicted. The residual volume is 1.45 L, 67% predicted. Diffusing capacity: The diffusing capacity unadjusted for hemoglobin and carboxyhemoglobin is 18.3, 81% predicted. The diffusing capacity adjusted for alveolar volume is 4.71, 110% predicted. Impression: There is a mild restrictive ventilatory abnormality with a normal FEV1. The spirometry is normal without evidence of an obstructive abnormality. There is no significant improvement after inhaling a single dose of albuterol. The diffusing capacity is normal. There are no prior studies for comparison
== END 2025-04-24 13:23 | disposition home or self-care (01) ==
PROVIDERS: PCP Internal Medicine; Visit Provider Internal Medicine Pulmonary Disease
DX: R06.09 Other forms of dyspnea (principal); R05.3 Chronic cough; D89.9 Disorder involving the immune mechanism, unspecified; Z91.09 Other allergy status, other than to drugs and biological substances
CPT/HCPCS: 36415; 82103; 82784; 82785; 82787; 83880; 85048; 86003; 86480; 94060; 94726; 94729

== ENCOUNTER 2025-05-22 12:27 | Outpatient (CLI) | payer OTHER, SELFPAY ==
--- OUTSIDE RECORDS SUMMARY | 2025-05-22 12:31 | XMS_ITS | Clinical Summary ---
Author Organization [facility] [place] [address] [facility] Address [address] [place] [address] Care Team Providers Care Table Assembler Metal Name Role Phone Parker Brody MD Primary Care Provider Allergies Active Allergy Reactions Criticality Noted Date Comments Amoxicillin Clarithromycin Other (See comments) Low 05/23/2022 Doxycycline Other (See comments) Low 05/23/2022 Levofloxacin Rash Medium 02/19/2020 Penicillins Hives Medium Sulfa (Sulfonamide Antibiotics) Hives Medium 04/26 Sulfamethoxazole-Trimethoprim Hives Medium 2019 Medications atorvastatin (LIPITOR) 20 mg tablet 12/25/19 20 Active vit D3-vit N-irpsknhdc-lufi [id number] cnwi-dfd-hh-mg tablet Take by mouth Active LORazepam (ATIVAN) [...] 05/18/2021 Assessment & Plan (09/01/2024 7:20 AM CONTINUOUS PROCESS TANNER ROTARY DRUM): Risks and benefits of hormone replacement (HRT) [...] The testosterone cream will be refilled at [place] [facility]. Order to have testosterone level checked [...] on file Legal Sex Female 2:28 AM CONTINUOUS PROCESS TANNER ROTARY DRUM Gender Identity Female 05/11/2020 9:19 PM CDT [...] Comments Blood Pressure 180/80 08/08/2024 2:07 PM CONTINUOUS PROCESS TANNER ROTARY DRUM Pulse 90 08/14/2020 3:15 PM CONTINUOUS PROCESS TANNER ROTARY DRUM Temperature 37.1 C (98.7 F) 08/14/2020 3:15 PM CONTINUOUS PROCESS TANNER ROTARY DRUM Respiratory Rate 20 08/14/2020 3:15 PM CONTINUOUS PROCESS TANNER ROTARY DRUM Oxygen Saturation 98% 08/14/2020 3:15 PM CONTINUOUS PROCESS TANNER ROTARY DRUM Inhaled Oxygen Concentration - - Weight 71.7 kg (158 lb) 08/08/2024 2:07 PM CONTINUOUS PROCESS TANNER ROTARY DRUM Height 167.6 cm (5' 6) 10/08/2024 12:18 PM CONTINUOUS PROCESS TANNER ROTARY DRUM Body Mass Index 24.75 06/06/2023 3:17 PM [...] Read Routine (OP Routine) 10/08/2024 12:27 PM CONTINUOUS PROCESS TANNER ROTARY DRUM Encounter for screening mammogram for malignant neoplasm of breast PAP AND HPV, REFLEX TO HPV GENOTYPES Routine 06/06/2023 3:58 PM CDT Well woman exam COLONOSCOPY Routine 02/05/2019 from Last 3 Months or Most Recently Relevant to Health Maintenance Results * Testosterone, Total and Free, Serum (04/15/2025 9:33 AM CDT) Testosterone 38 2 - 45 ng/dL [facility] Comment: For additional information, please refer to https://education.[employer].myOrder/faq/ORB963 (This link is being provided for informational/educational purposes only.) (Note) This test was developed and its analytical performance characteristics have been determined by [facility]. It has not been cleared or approved by the FDA. This assay has been validated pursuant to the CLIA regulations and is used for clinical purposes. Testosterone, free 3.9 0.1 - 6.4 pg/mL [facility] Comment: (Note) This test was developed and its analytical performance characteristics have been determined by [facility]. It has not been cleared or approved by the FDA. This assay has been validated pursuant to the CLIA regulations and is used for clinical purposes. [facility] [address] [address],[address] [facility] [address] Lula Franco MD, PhD Sex hormone binding globulin 50 14 - 73 nmol/L [facility] Blood 04/15/2025 9:33 AM CDT 04/15/2025 9:34 AM CDT Narrative [facility] - 04/20/2025 3:49 PM CDT FASTING:YES FASTING: YES us Sarai Salazar NP LAB BLOOD ORDERABLES Final Resul t MARY [facility] [address] [address], [address] [place] [address] * Screening Mammogram Bilateral W Jaitnder (10/08/2024 12:27 PM CONTINUOUS PROCESS TANNER ROTARY DRUM) Anatomical Region Laterality Modality Breast Bilateral Mammography 10/08/2024 12:3 1 PM CONTINUOUS PROCESS TANNER ROTARY DRUM Impressions 10/08/2024 12:31 PM CONTINUOUS PROCESS TANNER ROTARY DRUM No evidence of malignancy in either breast. FINAL ASSESSMENT: BI-RADS Category 2: Benign. RECOMMENDATION: Recommend return for annual screening mammogram in 12 months. Electronically signed by: Moe Jose M.D. Narrative 10/08/2024 12:31 PM CONTINUOUS PROCESS TANNER ROTARY DRUM EXAMINATION: BILATERAL SCREENING MAMMOGRAM COMPARISON: All prior [...] THIS SPECIMEN WAS RESCREENED PART OF OUR FABRICATION MIG WELDER PROGRAM. Specimen adequacy: Comment [facility] - 01 Comment: Satisfactory for evaluation. Endocervical and/or squamous metaplastic cells (endocervical component) are present. Clinician provided ICD10 Comment [facility] - 01 Comment:Z01.419 Performed by Comment [facility] - 01 Comment:Miguelina Chen, Larry totechnologist (ASCP) QC reviewed by Comment [facility] - 01 Comment:Alayna Forrester, Felicia [facility] Security Installation Sales Technician ([facility]) . . [facility] - 01 [...] 06/11/2023 12:09 PM CDT Performed at: - [facility] [id number] Script Developer: Lyndsey Cornejo MD, Phone: [phone] Performed at: 02 - [address] [id number] Script Developer: Lyndsey Cornejo MD, Phone: [phone] Specimen Comment: No. of containers..01 ThinPrep Vial Sarai Salazar GOLF COURSE EQUIPMENT OPERATOR LAB CYTOLOGY ORDERABLES Final Re sult [facility] - 01 LAB [facility] 02 * Colonoscopy (02/05/2019) Anatomical Region Laterality Modality Other us Historical Provider ENDOSCOPY PROCEDURES Michelle ramos Result from Last 3 Months or Most Recently Relevant to Health Maintenance Insurance [facility] Care Teams Table Assembler Metal Relationship Specialty Start Date End Date Parker Brody MD [address] [facility] [address] [place] [address] PCP - General 11/22/21
--- NOTE | 2025-05-22 14:54 | P.METCHAL_ITS ---
Methacholine Procedure Perform Procedure Performed Methacholine Challenge Methacholine Challenge Methacholine Challenge: This is a methacholine challenge test. The test was performed and interpreted in accordance with the 2017 ERS technical standard, endorsed by the ATS, using the GLI 2012 reference equations. Testing was performed with increasing doses of nebulized methacholine following a quadrupling dosage protocol. The methacholine dose was delivered via the [employer] nebulizer using a 1-minutes tidal breathing protocol. The best post-methacholine FEV1 values were used to determine the change from the post diluent FEV1. The delivered dose of methacholine was used to calculate the provocative dose causing a 20% fall in FEV1 (PD20). Findings: Baseline FEV1 2.13 L, 79 predicted. Post diluent FEV1 2.12 L Post 1.81 mcg methacholine FEV1 2.12 L, decreased 0% Post 7.26 mcg methacholine FEV1 2.14 L, increased 1% Post 29.03 mcg methacholine FEV1 2.13 L, increased 1% Post 116.1 mcg methacholine FEV1 2.08 L, decreased 2% Post 464.4 mcg methacholine FEV1 1.91 L, decreased 10% Post albuterol nebulization FEV1 2.05 L Impression: The PD20 is > 400 mcg which is categorized as normal airway hyperresponsiveness. There are no prior methacholine challenge studies for comparison
== END 2025-05-22 12:28 | disposition home or self-care (01) ==
PROVIDERS: PCP Internal Medicine; Visit Provider Internal Medicine Pulmonary Disease
DX: R05.3 Chronic cough (principal)
CPT/HCPCS: 94070; J7674

== ENCOUNTER 2025-07-22 09:57 | Outpatient (CLI) | payer OTHER, SELFPAY ==
--- OUTSIDE RECORDS SUMMARY | 2016-10-17 12:20 | XMS_ITS | Continuity of Care Document ---
Author Organization [facility] Address [address] [place] [address] Phone Care Team Providers Care Community Liaison Officer Name Role Phone Akil Nichols OD Unavailable Unavailable Allergies, Adverse Reactions, Alerts Substance Reaction Status Criticality No Known Allergies Resolved No Inform ation Medications Medication Instructions Dosage Effective Dates (start - stop) Status Comments Zyrtec 10 mg tablet take 1 tablet by ora l route every day 10 MG - Active Klonopin 0.5 mg tablet take 1 tablet by oral route 3 times every day 0.5 MG - Active [place] Thyroid 30 mg tablet - Active bupropion HCl XL 300 mg 24 hr tablet, extended release take 1 tablet by oral route every day 300 MG - Active Procedures Procedure Date REFRACTION New Comprehensive Exam Advance Directives Directive Yes / No Effective Date File Name No Information Encounters Encounter Description Practice Location Reason(s) For Visit Diagnoses Date Provider Providers Copied on Encounter [facility], [address], [place], [id number], tel:[phone] [facility]- routine exam (chief complaint) Presbyopia Simone Barnard. [address], [address], [place], [place], [id number]. tel:[phone] Family History Family Member Type Diagnosis Age At Onset Problem (finding) Family history of Diabetes mellitus (Cause Of ) Problem (finding) Family history of catar act Problem (finding) Family history of Thyro id disorder Problem (finding) Family history of Arthr itis Problem (finding) Family history of strok e Problem (finding) Family history of hyper tension Payers Payer name Insurance type Covered democrat ID Authorvicky dooley(s) [facility] [id number] Social History Type Description Quantity Date Captured Comments Alcohol Use Details Caffeine Use Details Tobacco Use Status No Information Smoking Status Never smoker Non-Smoking Tobacco Use Details : No Details Available : No Details Available Sex Female Chief Complaint And Reason For Visit From encounter dated '10/17/2016 17:20'. routine exam (chief complaint). Description: The 56 year old female presents for evaluation of routine exam in the right eye and left eye. Stated that her vision has changed both distance and close up within the past 12 months. Last exam was in 2014. Patient has limes and with that her right eye seems to be dry alot. Reason For Referral Reason For Referral No Information Plan Of Treatment Date Type Action Status Patient Education Presbyopia: After Your Visit completed History Of Present Illness Encounter Date Complaint History Of Prese nt Illness routine exam The 56 year old female presents for evaluation of routine exam in the right eye and left eye. Stated that her vision has changed both distance and close up within the past 12 months. Last exam was in 2014. Patient has limes and with that her right eye seems to be dry alot. Functional Status Date Functional Assessmen t No Information Instructions Date Instruction Additional Infor mation Return in 1 year wit h Akil Nichols, OD for full exam. Related to Presbyopia Follow up - Return i n 1 year with Akil Nichols OD for full exam. Related to Presbyopia Impression/Plan - Change in RX. Related to Presbyopia Assessments Type Assessment Date assessment Presbyopia impression Presbyopia: H52.4. Patient Care Teams Name Effective Dates (start - stop) Status Members No Information
--- NOTE | ~2025-07-22 | US_ITS ---
EXAMINATION: US retroperitoneal duplex ltd DATE: 07/22/2025 11:34 INDICATION: Renal artery stenosis TECHNIQUE: Multiple grayscale, color Doppler, and pulsed Doppler [id number] of the kidneys and renal arteries were obtained. COMPARISON: CT dated 04/09/2023 FINDINGS: The aorta peak systolic velocity is 125 cm/s. The right renal artery peak systolic velocity is 93 cm/s in the proximal segment, 182 cm/s in the mid segment, and 166 cm/s in the distal segment. The left renal artery peak systolic velocity is 95 cm/s in the proximal segment, 90 cm/s in the mid segment, and 51 cm/s in the distal segment. IMPRESSION: 1. Elevated peak systolic velocities in the mid right renal artery, borderline criteria for correlation with a >50-60% stenosis. Reviewed, dictated and finalized at location A.
--- OUTSIDE RECORDS SUMMARY | 2025-07-22 11:07 | XMS_ITS | Clinical Summary ---
Author Organization [facility] [place] 163 [facility] Address [address] [place] [address] Care Team Providers Care Packaging Technician Name Role Phone Parker Brody MD Primary Care Provider Allergies Active Allergy Reactions Criticality Noted Date Comments Amoxicillin Clarithromycin Other (See comments) Low 05/23/2022 Doxycycline Other (See comments) Low 05/23/2022 Levofloxacin Rash Medium 02/19/2020 Penicillins Hives Medium Sulfa (Sulfonamide Antibiotics) Hives Medium 04/26 Sulfamethoxazole-Trimethoprim Hives Medium 2019 Medications atorvastatin (LIPITOR) 20 mg tablet 12/25/19 20 Active vit D3-vit J-jspxmznji-kpil [id number] wbio-vka-bd-mg tablet Take by mouth Active LORazepam (ATIVAN) [...] THIGHS) SKIN DIRECTED ONCE DAILY 30 g 1 06/25/20 25 Active cream base no.56, bulk, cream TESTOSTERONE 0.2% CREAM. APPLY 4 CLICKS TOPICALLY TO THIN SKIN (HAIRLESS PARTS OF INNER WRISTS, ARMS, OR THIGHS) SKIN DIRECTED ONCE DAILY 30 g 5 11/25/19 25 025 Discontin ued(Reord er) Active Problems Problem Noted Date Diagnosed Date [...] 05/18/2021 Assessment & Plan (09/01/2024 7:20 AM CONFIGURATION TECHNICIAN): Risks and benefits of hormone replacement (HRT) [...] The testosterone cream will be refilled at [place] pharmacy. Order to have testosterone level checked given and patient plans to have labs drawn at [facility]. Assessment & Plan (05/18/2021 4:50 [...] Encounters Date Type Department Care Team Description 06/25/2025 Telephone [place] [facility] [address] [facility] [address] [place] [address] Catrina Mcgowan, RN Testosterone Cream Refill from Last 3 Months Immunizations Immunization Administration Dates Next Due Influenza, [...] on file Legal Sex Female 2:28 AM CONFIGURATION TECHNICIAN Gender Identity Female 05/11/2020 9:19 PM CDT [...] Comments Blood Pressure 180/80 08/08/2024 2:07 PM CONFIGURATION TECHNICIAN Pulse 90 08/14/2020 3:15 PM CONFIGURATION TECHNICIAN Temperature 37.1 C (98.7 F) 08/14/2020 3:15 PM CONFIGURATION TECHNICIAN Respiratory Rate 20 08/14/2020 3:15 PM CONFIGURATION TECHNICIAN Oxygen Saturation 98% 08/14/2020 3:15 PM CONFIGURATION TECHNICIAN Inhaled Oxygen Concentration - - Weight 71.7 kg (158 lb) 08/08/2024 2:07 PM CONFIGURATION TECHNICIAN Height 167.6 cm (5' 6) 10/08/2024 12:18 PM CONFIGURATION TECHNICIAN Body Mass Index 24.75 06/06/2023 3:17 PM CDT Plan of Treatment Health Maintenance Due Date Last Done Comments Hepatitis C Screening 1960 Hepatitis B Screening 1980 Zoster Vaccine (1 of 2) 2012 Colon Cancer Screening-Colonoscopy 02/06/2024 02/05/2019 Cervical Cancer Screening 06/06/2024 06/06/2023, DTaP/Tdap/Td Vaccine (2 - Td or Tdap) 08/05/2024 08/05/2014 Influenza Vaccine (#1) 2025 , 06/30/2022, 07/03/2021, Additional history exists Depression Screening [...] Read Routine (OP Routine) 10/08/2024 12:27 PM CONFIGURATION TECHNICIAN Encounter for screening mammogram for malignant neoplasm of breast PAP AND HPV, REFLEX TO HPV GENOTYPES Routine 06/06/2023 3:58 PM CDT Well woman exam COLONOSCOPY Routine 02/05/2019 from Last 3 Months or Most Recently Relevant to Health Maintenance Results * Screening Mammogram Bilateral W Jatinder (10/08/2024 12:27 PM CONFIGURATION TECHNICIAN) Anatomical Region Laterality Modality Breast Bilateral Mammography 10/08/2024 12:3 1 PM CONFIGURATION TECHNICIAN Impressions 10/08/2024 12:31 PM CONFIGURATION TECHNICIAN No evidence of malignancy in either breast. FINAL ASSESSMENT: BI-RADS Category 2: Benign. RECOMMENDATION: Recommend return for annual screening mammogram in 12 months. Electronically signed by: Moe Jose M.D. Narrative 10/08/2024 12:31 PM CONFIGURATION TECHNICIAN EXAMINATION: BILATERAL SCREENING MAMMOGRAM COMPARISON: All prior [...] THIS SPECIMEN WAS RESCREENED PART OF OUR TRANSPORTATION ASSISTANT PROGRAM. Specimen adequacy: Comment [facility] - 01 Comment: Satisfactory for evaluation. Endocervical and/or squamous metaplastic cells (endocervical component) are present. Clinician provided ICD10 Comment [facility] - 01 Comment:Z01.419 Performed by Comment [facility] - 01 Comment:Miguelina Chen, Larry totechnologist (ASC) QC reviewed by Comment [facility] - 01 Comment:Alayna Forrester, Felicia [facility] [employer] Appliances Demonstrator (ASCP) . . [facility] - 01 Note: Comment [...] 12:09 PM CDT Performed at: 01 - [facility] [id number] Pets Salesperson: Lyndsey Cornejo MD, Phone: [phone] Performed at: - [facility] [address] [id number] Pets Salesperson: Lyndsey Cornejo MD, Phone: [phone] Specimen Comment: No. of containers..01 ThinPrep Vial Sarai Salazar NP LAB CYTOLOGY ORDERABLES Final Re sult [facility] - 01 LAB [facility] 02 * Colonoscopy (02/05/2019) Anatomical Region Laterality Modality Other Historical Provider ENDOSCOPY PROCEDURES Michelle l Result from Last 3 Months or Most Recently Relevant to Health Maintenance Insurance [facility] Care Teams Packaging Technician Relationship Specialty Start Date End Date Parker Brody MD [address] [facility] [address] [place], [place] [id number] PCP - General 11/22/21
== END 2025-07-22 09:58 | disposition home or self-care (01) ==
PROVIDERS: PCP Internal Medicine; Visit Provider Internal Medicine
DX: I70.1 Atherosclerosis of renal artery (principal)
CPT/HCPCS: 93976